=== PATIENT | female | born 1930 | race Caucasian/White ===

== ENCOUNTER → 2016-10-19 | Outpatient (CLI) | payer OTHER, BC ==
[~2016-10-19] MED LIST: ACET325T95 PO; CALCTAB7 PO; CMD5 PO; DORZ2SOL; LEVO125T72 PO; MAGN1CAP2 PO; MULT-190 PO; MULTTAB PO; POTA1TAB PO; WARF7.5T4 PO; XLTOPS OPB
[2016-10-19 13:36] LABS: BASO % 0.5 %; BASO ABS # 0.04 K/uL (0-0.2); COMPLETE YES; EOS % 1.9 %; HEMATOCRIT 37.8 % (37-47); IG% 0.1 %; LYMPH % 26.4 %; LYMPH ABS # 1.93 K/uL (1.2-3.4); MEAN CELL VOLUME 98.7 fL (80-100); MEAN CORPUSCULAR HEMOGLOBIN 32.1 pg (25-34); MEAN CORPUSCULAR HGB CONC 32.5 g/dl (32-36); MEAN PLATELET VOLUME 9.8 fL (7.4-10.4); MONO % 9.4 %; NEUT % 61.7 %; PLATELET COUNT 305 K/uL (130-400); RED BLOOD COUNT 3.83 M/uL (4.2-5.4); WHITE BLOOD COUNT 7.31 K/uL (4.8-10.8)
--- NOTE | 2016-10-19 13:48 | DIAGNOSTIC IMAGING REPORT ---
ULTRASOUND RIGHT VENOUS DOPP LOWER EXT UNILAT CLINICAL HISTORY: Right lower leg pain COMPARISON STUDY: 07/13/2015 FINDINGS: Real-time and color flow Doppler imaging were performed. Flow was seen within the femoral, popliteal and calf veins with no intraluminal thrombus demonstrated. The saphenous vein is patent. There is a complex cystic lesion within the right popliteal fossa measuring 59 x 39 x 15 mm. 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 IMPRESSION: 1. No evidence of right lower extremity DVT 2. Complex popliteal/Ortega's cyst Electronically signed by: Yuri Santana M.D. 10/19/2016 1:46 PM Dictated Date/Time: 10/19/2016 1:45 PM
[2016-10-19 14:00] LABS: ESTIMATED AVERAGE GLUCOSE 134 mg/dl; HA1C FLAG Normal (Normal)
[2016-10-19 14:07] LABS: ALT/SGPT 19 U/L (12-78); AST/SGOT 13 U/L (15-37); BLOOD UREA NITROGEN 31 mg/dl (7-18); BUN/CREATININE RATIO 28.2 (10-20); CALCIUM 9.1 mg/dl (8.5-10.1); CARBON DIOXIDE 29 mmol/L (21-32); CHLORIDE 110 mmol/L (98-107); GLUCOSE 102 mg/dl (70-99); POTASSIUM 4.4 mmol/L (3.5-5.1); SODIUM 143 mmol/L (136-145)
[2016-10-19 14:17] LABS: ALB/GLOB RATIO 1.1 (0.9-2); ALKALINE PHOSPHATASE 60 U/L (45-117); THYROID STIMULATING HORMONE 0.576 uIu/ml (0.300-4.500)
--- NOTE | 2016-10-25 10:16 | CODING QUERY MEDICAL NECESSITY ---
SUPPORTING DIAGNOSIS NEEDED Dr. Parkinson, A supporting diagnosis is required for the test/procedure performed on this patient in order for us to be reimbursed by the patient's insurance. Please provide a supporting diagnosis for the following test/procedure listed below next to the test name along with your signature. *If there is no additional diagnosis for this patient that would support the following test/procedure please document that below next to the test/procedure. Test(s)/Procedure(s) that require a supporting diagnosis: * ([id number]) VITAMIN D ASSAY DIAGNOSIS: * [id number] GLYCATED HEMOGLOBIN DIAGNOSIS: DATE OF SERVICE: 10/19/16 Provider Signature: Date: Thank you Hu Fall[facility] Information Management Once completed, please kindly fax back to [phone] For questions please call [phone]
== END | disposition home or self-care (01) ==
LOC: C.ULTRBC 09:57
PROVIDERS: ATTEND Family Medicine
DX: M79.661 Pain in right lower leg (principal); M85.80 Other specified disorders of bone density and structure, unspecified site; N39.0 Urinary tract infection, site not specified; E03.9 Hypothyroidism, unspecified; R73.03 Prediabetes

== ENCOUNTER 2017-08-22 06:33 | Inpatient (IN) | payer OTHER, BC ==
[2017-07-31 14:38] VITALS: BMI 21.0
--- NOTE | 2017-07-31 15:16 | PAT Medication Instructions ---
Service Date Jul 31, 2017. Current Home Medication List Acetaminophen Tab (Tylenol), 650 MG PO PRN Calcium Carbonate-Vitamin D W/ (Caltrate 600 Plus), 1 TAB PO QAM Dorzolamide Hcl (Trusopt), 1 DROP OPB TID Latanoprost (Xalatan 0.005% Oph Elisabeth), 1 DROPS OP HS Levothyroxine Sodium (Synthroid), 125 MCG PO QPM Magnesium Oxide (Mg Supplement (Magnesium), 400 MG PO QPM Multivitamins/Minerals (Mvi With Minerals), 1 TAB PO QAM Ocuvite Preservision (Ocuvite Preservision), 1 TAB PO BID Potassium Gluconate (Potassium Gluconate), 595 MG PO BID Warfarin Sod (Jantoven), 7.5 MG PO 5XWK Warfarin Sod (Coumadin), 5 MG PO 2XWK Medication Instructions For Your Scheduled Surgery -Contact your prescriber for instructions for: Warfarin Sod (Jantoven), 7.5 MG PO 5XWK Warfarin Sod (Coumadin), 5 MG PO 2XWK - Hold the following medications the morning of surgery: Potassium Gluconate (Potassium Gluconate), 595 MG PO BID Calcium Carbonate-Vitamin D W/ (Caltrate 600 Plus), 1 TAB PO QAM Multivitamins/Minerals (Mvi With Minerals), 1 TAB PO QAM Ocuvite Preservision (Ocuvite Preservision), 1 TAB PO BID - Take the following medications the morning of surgery with a sip of water: Dorzolamide Hcl (Trusopt), 1 DROP OPB TID Acetaminophen Tab (Tylenol), 650 MG PO PRN (if needed, can be taken up to four hours before surgery) - Take the following medications as scheduled the night before surgery: Latanoprost (Xalatan 0.005% Oph Elisabeth), 1 DROPS OP HS Dorzolamide Hcl (Trusopt), 1 DROP OPB TID Levothyroxine Sodium (Synthroid), 125 MCG PO QPM Potassium Gluconate (Potassium Gluconate), 595 MG PO BID Ocuvite Preservision (Ocuvite Preservision), 1 TAB PO BID Magnesium Oxide (Mg Supplement (Magnesium), 400 MG PO QPM Acetaminophen Tab (Tylenol), 650 MG PO PRN If you have any questions please call us at [phone] or [phone] or [phone]
--- NOTE | 2017-07-31 16:05 | DIAGNOSTIC IMAGING REPORT ---
CHEST 2 VIEWS ROUTINE CLINICAL HISTORY: Preoperative chest COMPARISON STUDY: 08/13/2015 FINDINGS: The cardiac and mediastinal contours are normal. There is no evidence of focal pulmonary consolidation. There is no evidence of failure. No pleural effusions are visualized.[ IMPRESSION: No active disease in the chest. Electronically signed by: Yuri Santana M.D. 07/31/2017 4:04 PM Dictated Date/Time: 07/31/2017 4:03 PM
[2017-07-31 16:36] LABS: BASO % 0.4 %; BASO ABS # 0.03 K/uL (0-0.2); EOS % 1.6 %; EOS ABS # 0.11 K/uL (0-0.5); HEMATOCRIT 39.8 % (37-47); IG# 0.01 K/uL (0.00-0.02); MEAN CORPUSCULAR HGB CONC 32.7 g/dl (32-36); MONO % 7.1 %; MONO ABS # 0.49 K/uL (0.11-0.59); NEUT % 58.8 %; NEUT ABS # 4.04 K/uL (1.4-6.5); PLATELET COUNT 266 K/uL (130-400); RED CELL DISTRIBUTION WIDTH CV 14.9 % (11.5-14.5); RED CELL DISTRIBUTION WIDTH SD 55.1 fL (36.4-46.3); WHITE BLOOD COUNT 6.88 K/uL (4.8-10.8)
[2017-07-31 16:43] LABS: CALCIUM 9.1 mg/dl (8.5-10.1); CREATININE 1.04 mg/dl (0.60-1.20); POTASSIUM 4.1 mmol/L (3.5-5.1)
[2017-07-31 16:53] LABS: PTT PATIENT 37.1 SECONDS (21.0-31.0)
--- NOTE | 2017-08-17 21:39 | HISTORY & PHYSICAL EXAMINATION ---
DATE OF ADMISSION: 08/22/2017 CHIEF COMPLAINT: Right knee pain. HISTORY OF PRESENT ILLNESS: This is an 86-year-old female who presents for surgical treatment of her right knee. She has a long history of right knee pain and discomfort. This has gotten gradually worse over the past several years. She has become more and more debilitated by her pain. She has resorted to using a cane to get around. Describes a global pain. It is increased with weightbearing. She would like to have her knee replaced. 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 PAST MEDICAL HISTORY: Significant for: 1. Factor V Leiden abnormality. 2. Hypothyroidism. 3. Arthritis. PAST SURGICAL HISTORY: Hysterectomy. ALLERGIES: None. CURRENT MEDICINES: 1. Coumadin 2. Synthroid. 3. Potassium. 4. PreserVision. 5. Calcium. 6. Magnesium. SOCIAL HISTORY: This is an 86-year-old female. She is . She has 7 children. One drink per day. Her is in fairly poor health. FAMILY HISTORY: Significant for heart disease. REVIEW OF SYSTEMS: Negative for diabetes, neurologic problems, back problems or bleeding disorders. She does have Factor V Leiden abnormality and on Coumadin. She had several DVTs/PEs in the past. PHYSICAL EXAMINATION: GENERAL: This is a frail elderly female. She looks to be in reasonably good health. HEENT: Benign. NECK: Supple. No lymphadenopathy. LUNGS: Clear to auscultation. HEART: Regular rate and rhythm. ABDOMEN: Soft, nontender, nondistended. EXTREMITIES: Grossly neurovascularly intact except as follows: Examination of the right hip and knee and leg reveals the patient walks with a fairly slow gait. She does use a cane. She has slight varus alignment to her knee. Tender over the medial joint line. Range of motion 5-125. No instability. X-RAYS: X-rays of the right knee reviewed. It shows medial compartment DJD. She has complete loss of medial joint space on the 40 degree flexion films. ASSESSMENT: An 86-year-old white female with a history of factor V Leiden abnormality with advanced medial compartment degenerative joint disease. She would like to have her knee fixed. PLAN: We talked about treatment. With her age and factor V Leiden abnormality, we talked about the increased risk and she is aware and wants to proceed. She is fairly adamant about having her knee fixed. The risks and benefits of right total knee replacement were explained to the patient including but not limited to DVT, PE, , infection, neurological injury, vascular injury, bleeding problem, pain, limited range of motion, stiffness, failure to relieve symptoms, incomplete relief of symptoms, need for further surgery in the future, fracture, leg length inequality, nerve palsy. The patient understands and desires to proceed. Informed consent was obtained. She is certainly at increased risk for confusion postop and we will try and limit narcotic use. She will stop her Coumadin 5 days preoperatively. Will need a stat PT on the morning of surgery. We will use Coumadin for postoperative DVT prophylaxis. As far as discharge plans, she is hoping to be discharged to [facility] for rehab visit.
[~2017-08-22] VITALS: Ht 167.6 cm; Wt 60.7 kg
[2017-08-22] VITALS (8 sets, daily range): BP systolic 111–163; BP diastolic 53–64; PULSE 56–67; TEMP 36.3–36.8; O2SAT 96–99; Ht 167.6 cm; Wt 60.7 kg
[~2017-08-22 06:33] MED LIST changes: +ACET-1693 PO; -ACET325T95 PO; +ACETAMINOPHEN 500 MG TAB PO SCH; +BUPIVACAINE LIPOSOME 266 MG, BUPIVACAINE/EPINEPHRINE INJ 50 ML, SODIUM CHLORIDE 0.9% PF... INFIL SCH; +CEFAZOLIN 2000MG IV PUSH 15 ML IV SCH; -CMD5 PO; -DORZ2SOL; +FAMOTIDINE 20 MG TAB PO SCH; +GABAPENTIN 300 MG CAP PO SCH; +LACTATED RINGER'S 1000ML 1,000 ML IV SCH; +LACTATED RINGER'S 1000ML 500 ML IV SCH; +LACTATED RINGER'S 1000ML IV SCH; -LEVO125T72 PO; -MAGN1CAP2 PO; +METOCLOPRAMIDE HCL 10 MG TAB PO SCH; -MULT-190 PO; -MULTTAB PO; +SCOPOLAMINE 1.5 MG TDSY TD SCH; +TRANEXAMIC ACID INJ 1,000 MG in SYRINGE 0 ML IV SCH; -WARF7.5T4 PO; -XLTOPS OPB
[2017-08-22] MEDS ORDERED: DEXAMETHASONE SOD INJ 4 MG/ML VIAL ONE (06:34)
[2017-08-22] MEDS ORDERED: BUPIVACAINE 0.5 % 5 MG/1 ML PF 10ML VIAL ONE (06:34)
[2017-08-22] MEDS ORDERED: BUPIVACAINE 0.25% 30 ML VIAL ONE (06:34)
[2017-08-22] MEDS ORDERED: EpINEphrine INJ 1MG/ML AMP 1 MG/ML AMP ONE (06:35)
[2017-08-22] MEDS ORDERED: MIDAZOLAM HCL 1 MG/ML 2ML VIAL ONE (06:38)
[2017-08-22] MEDS ORDERED: FENTANYL CITRATE INJ 50 MCG/1 ML 2 ML VIAL ONE (06:38)
[2017-08-22 07:54] LABS: INR 1.1 (0.9-1.1); PTT PATIENT 30.8 SECONDS (21.0-31.0)
--- NOTE | 2017-08-22 08:38 | History & Physical Bridge Note ---
H&P Re-Evaluation Bridge Note: I have examined the patient, reviewed the History & Physical and in the interval since the performance of the History & Physical I have noted the following changes of clinical significance: No changes noted
[2017-08-22] MEDS ORDERED: SODIUM CHLORIDE 0.9% PF 50 ML VIAL ONE (08:51)
[2017-08-22] MEDS ORDERED: BUPIVACAINE/EPINEPHRINE 0.25% 1:200,000 30 ML VIAL ONE (08:51)
[2017-08-22] MEDS ORDERED: BUPIVACAINE LIPOSOME 1/3% 266 MG/20 ML VIAL INFIL ONE (08:51)
[2017-08-22] MEDS ORDERED: BACITRACIN 50000 UNIT VIAL ONE (08:51)
[2017-08-22] MEDS ORDERED: ATROPINE SULFATE 0.1 MG/ML 5ML SYR IV PRN (09:30)
[2017-08-22] MEDS ORDERED: ONDANSETRON INJ 2 MG/ML 2 ML VIAL IV PRN (09:30)
[2017-08-22] MEDS ORDERED: FENTANYL CITRATE INJ 50 MCG/1 ML 2 ML VIAL IV PRN (09:30)
[2017-08-22] MEDS ORDERED: EpHEDrine SULFATE INJ 50 MG/ML AMP IV PRN (09:30)
[2017-08-22] MEDS ORDERED: LIDOCAINE HCL 2% 2 ML VIAL (20MG/ML) ONE (09:46)
[2017-08-22] MEDS ORDERED: PROPOFOL IV EMULSION 10 MG/ML 20 ML VIAL IV ONE (09:46)
[2017-08-22] MEDS ORDERED: ONDANSETRON INJ 2 MG/ML 2 ML VIAL ONE (09:46)
[2017-08-22] MEDS ORDERED: EpHEDrine SULFATE 50MG/5ML SYR ONE (09:47)
--- NOTE | 2017-08-22 10:46 | [facility] Post Operative Brief Note ---
Immediate Operative Summary Operative Date Aug 22, 2017. Pre-Operative Diagnosis Right Knee Degenerative Joint Disease Post-Operative Diagnosis Right Knee Degenerative Joint Disease Procedure(s) Performed Right Total Knee Arthroplasty Surgeon Dr Jose G Lebron Turkey Roll Maker Surgeon(s) Gary Jimenez PA-C Estimated Blood Loss 50ML Findings Consistent with Post-Op Diagnosis Fluids (cc crystalloids) 1100 cc Specimens As Per Surgeon A. Right Knee Bone and Tissue Drains None Anesthesia Type MAC Spinal Regional Complication(s) none Disposition Accompanied Pt To Recover: no Disposition: Recovery Room / PACU
[2017-08-22] MEDS ORDERED: MAGNESIUM HYDROXIDE SUSP 30 ML UDC PO PRN (11:00)
[2017-08-22] MEDS ORDERED: SILVER SULFADIAZINE 1% CR 50 GM JAR EXT PRN (11:00)
[2017-08-22] MEDS ORDERED: METOCLOPRAMIDE HCL INJ 5 MG/ML 2 ML VIAL IV PRN (11:00)
[2017-08-22] MEDS ORDERED: ZOLPIDEM TARTRATE 5 MG TAB PO PRN (11:00)
[2017-08-22] MEDS ORDERED: BISACODYL 10 MG SUPP PR PRN (11:00)
[2017-08-22] MEDS ORDERED: ALUMINUM/MAGNESIUM/SIMETH (MAALOX MAX) 30 ML UDC PO PRN (11:00)
[2017-08-22] MEDS ORDERED: CEFAZOLIN IV 1,000 MG in DEXTROSE 5% 50ML 50 ML IV SCH (11:00)
--- NOTE | 2017-08-22 11:10 | DIAGNOSTIC IMAGING REPORT ---
L KNEE 1 OR 2 VIEWS ROUTINE CLINICAL HISTORY: AP/LATERAL IN PACU LEFT KNEE pain COMPARISON: None. DISCUSSION: Patient is status post total right knee arthroplasty. Good contact between prosthetic and the Bone. Surgical drains are present. Expected soft tissue postoperative change. IMPRESSION: Anatomic alignment status post total right knee arthroplasty. The above report was generated using voice recognition software. It may contain grammatical, syntax or spelling errors. Electronically signed by: Keyur Sheehan M.D. 08/22/2017 11:09 AM Dictated Date/Time: 08/22/2017 11:09 AM
--- NOTE | 2017-08-22 11:14 | OPERATIVE REPORT ---
DATE OF OPERATION: 08/22/2017 SURGEON: Dr. Jose G Lebron. SURETY BOND AGENT: GOLD Costa PREOPERATIVE DIAGNOSIS: Right knee degenerative joint disease. POSTOPERATIVE DIAGNOSIS: Same. PROCEDURE PERFORMED: Right cemented posterior stabilized total knee arthroplasty. COMPLICATIONS: None. ESTIMATED BLOOD LOSS: 50 mL. FLUID REPLACEMENT: 1100 mL crystalloid fluid replacement. TOURNIQUET TIME: 51 minutes at 300 mmHg. ANESTHESIA: Spinal with adductor canal block. DRAINS: None. SPECIMENS: Right knee sent for pathology. OPERATIVE INDICATIONS: The patient is an 86-year-old fairly healthy spry female with a Factor V Leiden abnormality, who has had a long history of right knee pain and discomfort that became less managed with conservative care over time. She has had more and more difficulty getting around to the point where she has had to use a cane. X-rays show moderately advanced knee DJD. She had failed conservative treatment and elected to proceed with operative treatment. Of note, the patient does have a Factor V Leiden abnormality and we explained the significantly increased risk of thrombosis and pulmonary embolism with her underlying condition. Despite this, she was adamant about proceeding with knee arthroplasty. OPERATIVE FINDINGS: Operative findings revealed advanced right knee DJD. She had focal grade 4 changes in the medial femoral condyle and medial tibial plateau. She also had pretty extensive focal grade 4 changes in the lateral compartment as well as in the intercondylar eminence area due to the subluxation. A moderate sized joint effusion. OPERATIVE IMPLANTS: Operative implants consisted of: 1. Biomet Vanguard size 62.5 right posterior stabilized femoral component. 2. Biomet size 67 tibial tray. 3. A 10-mm posterior stabilized polyethylene insert. 4. A 31 x 8 all poly patella. OPERATIVE PROCEDURE: The patient was taken to the operating room, identified and placed on the operating table in the supine position. All contact areas were appropriately padded. IV antibiotics provided by anesthesia team. A spinal anesthetic and adductor canal block had been provided in the holding area. Park catheter was placed in sterile fashion. Right thigh tourniquet was then placed and the right lower extremity was then prepped and draped in the usual sterile fashion. The right leg was elevated and exsanguinated with Esmarch and tourniquet was placed at 300 mmHg. An anterior approach to the right knee was then performed through a longitudinal incision centered over the patella. Sharp dissection was carried through the subcutaneous tissues down to the level of the extensor mechanism. A medial parapatellar arthrotomy incision was made. Some subperiosteal dissection was carried out medially. The fat pad was resected from beneath the patellar tendon. The lateral patellofemoral ligament was released. The patella was everted and knee was flexed. The osteophytes were taken off the distal femur. The ACL and PCL were then released from the distal femur and the tibia subluxated anteriorly. The external tibial alignment jig was then placed in the anterior face of the tibia and adjusted 14 mm medially. Proximal tibial cut was made to remove about 3-4 mm of bone from the most deficient aspect of the medial tibial plateau. She did not have excessive medial tibial wear. The tibia was sized to a size 67. Attention was then drawn to the femur. The distal femur was entered with a sharp drill. The intramedullary canal was suctioned. A right 5-degree valgus cutting guide was placed. Distal femoral cutting block was pinned in place. Distal femoral cut was made to take an additional 3 mm of bone off the distal femur. The femur was then sized to a size 62.5. We did downsize this slightly. The AP cutting block was pinned parallel to the epicondylar axis, which was 3 degrees of external rotation. The anterior cut, anterior chamfer, posterior cut, and posterior chamfer cuts were made. Box cutting guide was placed and adjusted slightly lateral and the box cut was made. The knee was flexed. The remnants of the medial and lateral meniscus were excised. The osteophytes were taken off the posterior aspect of the femur. Trial femoral component was placed. Tibial tray was pinned in maximum external rotation and the drill and stem punch were used to create defect in proximal tibia for the tibial tray. The knee was then trialed and the 10-mm insert fit most appropriately. Attention was then drawn to the patella. The patella was cleaned of all soft tissues. Patella thickness measured 22 mm in thickness and it was cut down to 13. It was sized to a size 31 patella. Lug holes were drilled for the 31 patella. The lateral osteophyte was removed. Patella button was placed. Knee was taken through range of motion and the patella tracked nicely with no thumbs test. Attention was then drawn toward placement of permanent components. All trial components were removed. A bone plug was placed in the distal femur to limit blood loss. A double batch of Palacos G cement was mixed. A right size 62.5 posterior stabilized femoral component, size 67 tibial tray, a 10-mm posterior stabilized polyethylene insert, and a 31 x 8 all poly patella were then cemented in place. Knee was brought out into full extension until cement hardened. A final cement check was then performed. Pericapsular tissues were injected with a total of 100 mL of a combination of 20 mL of Exparel, 30 mL of normal saline, and 50 mL of 0.25% Marcaine with epinephrine. The patient did receive 1 gram of tranexamic acid. We gave this knowing her Factor V Leiden abnormality, but there is no known increased thrombosis risk with this medicine. The tourniquet was then let down for a final tourniquet time of 51 minutes. Hemostasis was assured with the use of electrocautery. The extensor mechanism was then closed with a combination of #1 PDS suture and #1 Vicryl suture in a [id number] fashion. Extensor mechanism was checked and found to be intact. The subcutaneous tissues were then closed with 2-0 Dexon suture in a buried interrupted fashion. Skin was closed skin slime. Leg was then cleaned and dried and a sterile dressing of Xeroform, 4 x 4, sterile cast padding and Jr bandage were applied. The patient then transferred to the recovery room in stable condition. The patient tolerated the procedure well with no complications. All needle and sponge counts were correct at the end of the operation. I attest to the content of the Intraoperative Record and any orders documented therein. Any exception s are noted below.
--- NOTE | 2017-08-22 11:26 | Anesthesiology Progress Note ---
Anesthesia Post Op Note Date & Time Aug 22, 2017 at 11:25 Vital Signs Pain Intensity: 0 Vital Signs Past 12 Hours Date Time Temp Pulse Resp B/P (MAP) Pulse Ox O2 Delivery O2 Flow Rate FiO2 08/22/17 11:20 37 65 16 119/51 99 Nasal Cannula 2 08/22/17 11:10 67 16 121/53 99 Nasal Cannula 2 08/22/17 11:00 66 16 114/52 99 Oxymask 10 08/22/17 10:52 36.4 69 18 119/47 99 Oxymask 10 08/22/17 07:37 36.7 64 20 163/64 98 Room Air Notes Mental Status: alert / awake / arousable, participated in evaluation Pt Amnestic to Procedure: Yes Nausea / Vomiting: adequately controlled Pain: adequately controlled Airway Patency, RR, SpO2: stable & adequate BP & HR: stable & adequate Hydration State: stable & adequate Neuraxial Anesthesia: was administered, sensory block is resolving Anesthetic Complications: no major complications apparent
[2017-08-22] MEDS: ONDANSETRON INJ 2 MG/ML 2 ML VIAL IV PRN (12:32)
[2017-08-22] MEDS ORDERED: HYDROmorphone INJ 0.5 MG/0.5 ML SYR ONE (12:39)
[2017-08-22] MEDS: DORZOLAMIDE HCL 2% OPH SOLN 10 ML BTL OPB SCH ×2 (13:57→21:13)
[2017-08-22] MEDS: ACETAMINOPHEN 500 MG TAB PO SCH ×2 (13:57→21:20)
[2017-08-22] MEDS: D5W AND 1/2NSS + 20MEQ KCL 1,000 ML IV SCH ×2 (15:05→23:36)
[2017-08-22] MEDS ORDERED: WARFARIN SOD 10 MG TAB PO SCH (16:00)
[2017-08-22] MEDS: CHECK SCOPOLAMINE PATCH PLACEMENT SCH ×2 (16:32→23:36)
[2017-08-22] MEDS: TRAMADOL HCL 50 MG TAB PO PRN (16:36)
[2017-08-22] MEDS: KETOROLAC TROMETHAMINE 15 MG/ML VIAL IV. SCH ×2 (18:14→23:36)
[2017-08-22] MEDS: CEFAZOLIN IV 1,000 MG in SYRINGE 0 ML IV SCH (18:14)
[2017-08-22] MEDS: FERROUS GLUCONATE 324 MG TAB PO SCH (18:24)
[2017-08-22] MEDS ORDERED: NON-FORMULARY MEDICATION (Potassium Gluconate 595 MG) PO SCH (21:00)
[2017-08-22] MEDS: LATANOPROST 0.005% OP SOLN 2.5 ML BTL OP SCH (21:15)
[2017-08-22] MEDS: DOCUSATE SODIUM 100 MG CAP PO SCH (21:18)
[2017-08-22] MEDS: MAGNESIUM OXIDE 400 MG TAB PO SCH (21:18)
[2017-08-22] MEDS: SENNA 8.6 MG TAB PO SCH (21:18)
[2017-08-22] MEDS: CEROVITE ADV FORMULA TAB PO SCH (21:19)
[2017-08-23] VITALS (8 sets, daily range): BP systolic 90–121; BP diastolic 48–66; PULSE 53–81; TEMP 36.5–38.4; O2SAT 92–98
[2017-08-23] MEDS: CEFAZOLIN IV 1,000 MG in SYRINGE 0 ML IV SCH (02:02)
[2017-08-23] MEDS: ACETAMINOPHEN 500 MG TAB PO SCH ×3 (05:42→22:10)
[2017-08-23] MEDS: LEVOTHYROXINE 125 MCG TAB PO SCH (05:42)
[2017-08-23] MEDS: KETOROLAC TROMETHAMINE 15 MG/ML VIAL IV. SCH (05:43)
[2017-08-23 07:31] LABS: HEMATOCRIT 32.9 % (37-47); HEMOGLOBIN 10.6 g/dL (12.0-16.0); MEAN CELL VOLUME 100.9 fL (80-100); MEAN CORPUSCULAR HEMOGLOBIN 32.5 pg (25-34); MEAN CORPUSCULAR HGB CONC 32.2 g/dl (32-36); MEAN PLATELET VOLUME 9.9 fL (7.4-10.4); PLATELET COUNT 197 K/uL (130-400); RED CELL DISTRIBUTION WIDTH CV 14.3 % (11.5-14.5); RED CELL DISTRIBUTION WIDTH SD 52.6 fL (36.4-46.3); WHITE BLOOD COUNT 8.94 K/uL (4.8-10.8)
[2017-08-23 07:36] LABS: INR 1.2 (0.9-1.1)
--- NOTE | 2017-08-23 07:48 | PROGRESS NOTE ---
DATE: 08/23/2017 SUBJECTIVE: An 86-year-old female postop day 1 from right knee replacement. She is doing well. Pain seems to be very well controlled this morning. No chest pain or shortness of breath. Not feeling dizzy or lightheaded. OBJECTIVE: VITAL SIGNS: Temperature 36.8. Vital signs stable. GENERAL: Reveals a pleasant elderly female. She is lying in bed and looks pretty comfortable. She is doing a heel prop. EXTREMITIES: Examination of the right leg reveals the leg to be well aligned. Dressing is clean, dry and intact. She can dorsiflex and plantarflex her foot appropriately. She is neurologically intact. PLAN: 1. DVT prophylaxis including thigh-high TEDs, SCDs, and Coumadin as she has Factor V abnormality. We will start prophylactic Lovenox 24 hours post-op. 2. PT/OT. Weight bear as tolerated. Right total knee protocol. 3. Pain control, doing well with current pain regimen. 4. Disposition: She is planning to be discharged to [facility] for a rehab stay once medically stable and recovered. LILLIAN
--- NOTE | 2017-08-23 07:59 | PROGRESS NOTE ---
DATE: 08/23/2017 ADDENDUM Ximena is an 86-year-old female who has Factor V Leiden abnormality, postop day 1 from a right knee replacement. Her DVT prophylaxis plan is thigh TEDs, SCDs, and Coumadin. We bolster yesterday and she will start prophylactic Lovenox 24 hours postoperatively until her Coumadin is more therapeutic. We will give her 7.5 mg of Coumadin today.
[2017-08-23 08:01] LABS: CALCIUM 8.1 mg/dl (8.5-10.1); CREATININE 1.3 mg/dl (0.60-1.20); POTASSIUM 4.7 mmol/L (3.5-5.1)
[2017-08-23] MEDS: CHECK SCOPOLAMINE PATCH PLACEMENT SCH ×3 (08:27→23:39)
[2017-08-23] MEDS ORDERED: ULT50X PO ×2 (08:34)
[2017-08-23] MEDS ORDERED: FRRG PO ×2 (08:34)
[2017-08-23] MEDS ORDERED: ACET-24 PO ×2 (08:34)
--- NOTE | 2017-08-23 08:36 | Discharge Instructions ---
Discharge Instructions Date of Service Aug 23, 2017. Admission Reason for Admission: Right Knee Degenerative Joint Disease Discharge Discharge Diagnosis / Problem: Right Knee Replacement Discharge Goals Goal(s): Decrease discomfort, Improve function, Increase independence, Improve disease control, Therapeutic intervention Activity Recommendations Activity Level: Assistance Required Therapies: Physical Therapy, Occupational Therapy Weightbearing Status: Right weightbearing . Additional Information Patient informed of condition: Yes Advance Directives: Yes DNR: No Level of Care: Acute Rehab Communicable Disease: No Prognosis: Improving Instructions / Follow-Up Instructions / Follow-Up ACTIVITY RECOMMENDATIONS: Physical Therapy: * You will go to physical therapy three times each week for four to six weeks after your surgery in order to regain your knee range of motion and to retrain your knee to work properly. * It is just as important to make sure you are getting your knee perfectly straight as it is to regain your knee bend. * Taking a pain pill an hour before therapy can help you have a more productive and comfortable therapy session. Home Exercise: * You were shown a series of exercises (heel props, heel slides, etc.) in the hospital. Do these exercises three to four times each day including the exercises you were shown in physical therapy. Walking: * Get up and walk several times each day. For the first four weeks, try not to stand or walk for more than one hour at a time. If you do stand or walk for more than one hour, you will not hurt anything, but your knee and leg will likely swell. * As you feel comfortable, you may change from the walker or crutches to a cane and then to independent walking. MEDICATIONS: New Medicine: * You will likely be taking one or more of these medications: 1. Tramadol - A quick and shorter-acting pain medication. Take one to two tablets every four to six hours to lessen your pain. 2. Iron Sulfate - Take two times each day for the month after surgery to help you replace the blood lost during surgery. 3. Coumadin - Thins your blood to lessen the chance of forming a blood clot. The dose of this is different for each person and is based on your blood tests. * The most common side effects of pain medicine and iron are nausea and constipation. If nausea or constipation is too much of a problem or if you have any questions about your new medicines or doses, call [facility] at . We will try to help you manage these issues. VERY IMPORTANT TO READ AND REVIEW" Pain: * The immediate post-operative period after knee replacement surgery is often quite painful. * You are given a prescription for pain medicine. You should take it, as directed, when you need it, especially before physical therapy and before going to bed. Pain that interferes with sleep is very common and can last several months. * You will likely need pain medicine for the first four to six weeks. It will not stop all of the pain. The pain will lessen and as you feel better, you may change to milder pain medicine such as Tylenol. * The most common side effects of pain medicine are nausea and constipation, so don't take more than you need. SPECIAL CARE INSTRUCTIONS: TEDs/Elastic Stockings: * The white elastic stockings help limit swelling and prevent blood clots from forming in your legs. The more you wear them, the more they work. * Wear them for six weeks after knee replacement surgery and four weeks after partial knee replacement. Prevention of Infection: * Take antibiotics one hour before any dental cleaning, dental work, urological procedure, gastrointestinal procedure or any invasive surgery in order to prevent your new joint from getting infected. * You may get the antibiotics from the doctor performing the procedure or you may call our office at before and we will call in a prescription to the pharmacy of your choice. Things to Watch For: * Drainage from the incision site that occurs more than one week after your surgery. * Severely increased knee/leg pain or swelling. * Increased redness at the incision site. * Fever above 102 degrees Fahrenheit. * Unusual chest pain or shortness of breath. * Unusual pain or burning with urination. Call [facility] at with any of the above problems or if you have any questions about your medicines or recovery. FOLLOW UP VISIT: Make an appointment to see your doctor for approximately two weeks after surgery for a progress check and staple removal by calling the office at . Current Hospital Diet Patient's current hospital diet: Regular Diet Discharge Diet Recommended Diet: Regular Diet Procedures Procedures Performed: Right Total Knee Arthroplasty Pending Studies Studies pending at discharge: no Medical Emergencies . Who to Call and When: Medical Emergencies: If at any time you feel your situation is an emergency, please call 911 immediately. . Non-Emergent Contact Non-Emergency issues call your: Surgeon . . "Provider Documentation" section prepared by Jose G Lebron. . Core Measure Problem Core Measures: None
[2017-08-23] MEDS: PANTOprazole SOD 40 MG TAB PO SCH (08:49)
[2017-08-23] MEDS: CEROVITE ADV FORMULA TAB PO SCH ×2 (08:49→20:40)
[2017-08-23] MEDS: CALCIUM 600MG + VIT D 400 IU TAB PO SCH (08:49)
[2017-08-23] MEDS: DOCUSATE SODIUM 100 MG CAP PO SCH ×2 (08:50→20:40)
[2017-08-23] MEDS: FERROUS GLUCONATE 324 MG TAB PO SCH ×3 (08:50→17:56)
[2017-08-23] MEDS: MULTIVITAMIN TAB PO SCH (08:50)
[2017-08-23] MEDS: DORZOLAMIDE HCL 2% OPH SOLN 10 ML BTL OPB SCH ×3 (08:51→20:40)
[2017-08-23] MEDS ORDERED: CEROVITE ADV FORMULA TAB PO SCH (09:00)
--- NOTE | 2017-08-23 09:20 | Clinical Documentation Query ---
DEANNA Umanzor : CLINICAL DOCUMENTATION QUERY Documentation includes "Factor V Leiden abnormality". As appropriate, consider documentation as suggested below as "abnormality" cannot be assumed to be a deficiency or excess. Thank you. In your clinical opinion is this patient being managed for: ( x ) Factor 5 Leiden excess/thrombophilia ( ) Factor 5 Leiden deficiency/Owren disease ( ) Not Agree ( ) Other explanation of clinical findings (Please Explain) ( ) Unable to determine (Please Define) ( ) Need to Discuss The medical record reflects the following clinical findings, treatment, and risk factors. Clinical Indicators: As above Treatment: Coumadin Risk Factors: Genetic mutation/variant Please clarify and document your clinical opinion in the progress notes and discharge summary. Terms such as "probable", "suspected", "likely", "questionable", "possible", or "still to be ruled out" are acceptable. IF IN AGREEMENT, YOU MUST DOCUMENT ABOVE DIAGNOSTIC STATEMENT IN DAILY PROGRESS NOTES AND DISCHARGE SUMMARY. This document is not part of the patient's record. Thank You, Crescencio Wallace, [place] NENA [phone]
[2017-08-23] MEDS: D5W AND 1/2NSS + 20MEQ KCL 1,000 ML IV SCH (09:28)
--- NOTE | 2017-08-23 10:04 | Anesthesiology Progress Note ---
Anesthesia Post Op Note Date & Time Aug 23, 2017 at 10:03 Vital Signs Pain Intensity: 0.0 Vital Signs Past 12 Hours Date Time Temp Pulse Resp B/P (MAP) Pulse Ox O2 Delivery O2 Flow Rate FiO2 08/23/17 07:18 55 12 91/51 (64) 96 Room Air 08/23/17 07:15 Room Air 08/23/17 06:49 36.8 54 16 91/48 (62) 96 Room Air 08/23/17 05:50 96 Room Air 08/23/17 04:07 36.5 55 16 100/55 (70) 98 Nasal Cannula 2.0 08/22/17 23:40 Nasal Cannula 2.0 08/22/17 22:55 36.8 63 16 112/55 (74) 96 Nasal Cannula 2.0 Notes Mental Status: alert / awake / arousable, participated in evaluation Pt Amnestic to Procedure: Yes Nausea / Vomiting: adequately controlled Pain: adequately controlled Airway Patency, RR, SpO2: stable & adequate BP & HR: stable & adequate Hydration State: stable & adequate Neuraxial Anesthesia: was administered, sensory block resolved Anesthetic Complications: no major complications apparent
[2017-08-23] MEDS ORDERED: ENOXAPARIN 30 MG/0.3 ML SYR SQ SCH (12:00)
[2017-08-23] MEDS ORDERED: WARFARIN SOD 7.5 MG TAB PO ONE (16:00)
[2017-08-23] MEDS: TRAMADOL HCL 50 MG TAB PO PRN (20:38)
[2017-08-23] MEDS: LATANOPROST 0.005% OP SOLN 2.5 ML BTL OP SCH (20:39)
[2017-08-23] MEDS: MAGNESIUM OXIDE 400 MG TAB PO SCH (20:40)
[2017-08-23] MEDS: SENNA 8.6 MG TAB PO SCH (20:41)
[2017-08-23] MEDS: ENOXAPARIN 60 MG/0.6 ML SQ SCH (22:12)
[2017-08-24] MEDS: TRAMADOL HCL 50 MG TAB PO PRN ×3 (01:24→12:27)
[2017-08-24] MEDS: LEVOTHYROXINE 125 MCG TAB PO SCH (05:37)
[2017-08-24] MEDS: ACETAMINOPHEN 500 MG TAB PO SCH ×3 (05:37→21:26)
[2017-08-24 06:08] LABS: INR 1.5 (0.9-1.1)
[2017-08-24 06:25] LABS: CREATININE 1.46 mg/dl (0.60-1.20); POTASSIUM 4.6 mmol/L (3.5-5.1)
[2017-08-24 06:57] VITALS: BP 105/65; PULSE 65; TEMP 37.4; O2SAT 95
--- NOTE | 2017-08-24 07:36 | PROGRESS NOTE ---
DATE: 08/24/2017 SUBJECTIVE: An 86-year-old white female postop day #2 from a right knee replacement. Having a little bit more knee pain this morning. No other real complaints. No chest pain or shortness of breath. OBJECTIVE: VITAL SIGNS: Temperature is 37.4. Vital signs stable. GENERAL: Reveals a pleasant elderly female. A bit difficult hard of hearing. She is lying in bed, looks pretty comfortable. EXTREMITIES: Examination of the right leg reveals it to be well aligned. No significant drainage. Calf is soft and supple. She is neurologically intact. LABORATORY DATA: INR is 1.5. ASSESSMENT: An 86-year-old white female postop day #2 from a right knee replacement, doing pretty well loss. A bit more pain this morning which is not too unusual. Her INR not quite therapeutic. PLAN: 1. PT/OT. Weightbear as tolerated. Right total knee protocol. 2. Pain control, doing pretty well with current pain regimen. Will have to adjust medicines as needed to manage her pain, but avoid confusion. 3. DVT prophylaxis including thigh-high TEDs, SCDs, and she is on Coumadin and Lovenox. We will continue to dose of Coumadin and stop the Lovenox when she is in the therapeutic range. 4. Disposition: She is hoping to be discharged to [facility] for a brief rehab stay once medically stable.
[2017-08-24] MEDS: CHECK SCOPOLAMINE PATCH PLACEMENT SCH ×3 (08:09→22:49)
[2017-08-24] MEDS: HYDROmorphone INJ 0.5 MG/0.5 ML SYR IV PRN (08:12)
[2017-08-24] MEDS: FERROUS GLUCONATE 324 MG TAB PO SCH ×3 (08:30→18:50)
[2017-08-24] MEDS: ONDANSETRON INJ 2 MG/ML 2 ML VIAL IV PRN (08:39)
[2017-08-24] MEDS: PANTOprazole SOD 40 MG TAB PO SCH (09:00)
[2017-08-24] MEDS: MULTIVITAMIN TAB PO SCH (09:00)
[2017-08-24] MEDS: CEROVITE ADV FORMULA TAB PO SCH ×2 (09:00→21:24)
[2017-08-24] MEDS: CALCIUM 600MG + VIT D 400 IU TAB PO SCH (09:00)
[2017-08-24] MEDS: DOCUSATE SODIUM 100 MG CAP PO SCH ×2 (11:06→21:00)
[2017-08-24] MEDS: DORZOLAMIDE HCL 2% OPH SOLN 10 ML BTL OPB SCH ×3 (11:08→21:26)
[2017-08-24] MEDS: ENOXAPARIN 60 MG/0.6 ML SQ SCH (12:21)
[2017-08-24] MEDS ORDERED: WARFARIN SOD 7.5 MG TAB PO SCH (16:00)
[2017-08-24 17:20] VITALS: BP 95/56; PULSE 63; TEMP 36.9; O2SAT 100
[2017-08-24] MEDS: SENNA 8.6 MG TAB PO SCH (21:00)
[2017-08-24] MEDS: MAGNESIUM OXIDE 400 MG TAB PO SCH (21:24)
[2017-08-24] MEDS: LATANOPROST 0.005% OP SOLN 2.5 ML BTL OP SCH (21:27)
[2017-08-24] MEDS ORDERED: ENOXAPARIN 30 MG/0.3 ML SYR SQ SCH (23:00)
[2017-08-24 23:39] VITALS: BP 109/60; PULSE 60; TEMP 37; O2SAT 96
[2017-08-25 05:54] LABS: HEMATOCRIT 29.6 % (37-47); HEMOGLOBIN 9.5 g/dL (12.0-16.0); MEAN CELL VOLUME 101.4 fL (80-100); MEAN CORPUSCULAR HEMOGLOBIN 32.5 pg (25-34); MEAN CORPUSCULAR HGB CONC 32.1 g/dl (32-36); MEAN PLATELET VOLUME 9.7 fL (7.4-10.4); PLATELET COUNT 186 K/uL (130-400); RED CELL DISTRIBUTION WIDTH CV 14.6 % (11.5-14.5); RED CELL DISTRIBUTION WIDTH SD 54.1 fL (36.4-46.3); WHITE BLOOD COUNT 7.36 K/uL (4.8-10.8)
[2017-08-25 06:01] LABS: INR 1.5 (0.9-1.1)
[2017-08-25] MEDS: ACETAMINOPHEN 500 MG TAB PO SCH ×2 (06:08→13:47)
[2017-08-25] MEDS: LEVOTHYROXINE 125 MCG TAB PO SCH (06:09)
[2017-08-25] MEDS: TRAMADOL HCL 50 MG TAB PO PRN ×3 (06:09→14:45)
[2017-08-25 06:11] LABS: CALCIUM 8.1 mg/dl (8.5-10.1); CREATININE 1.05 mg/dl (0.60-1.20); POTASSIUM 4.4 mmol/L (3.5-5.1)
[2017-08-25] MEDS: HYDROmorphone INJ 0.5 MG/0.5 ML SYR IV PRN (06:46)
--- NOTE | 2017-08-25 07:36 | PROGRESS NOTE ---
DATE: 08/25/2017 SUBJECTIVE: This is an 86-year-old white female postop day 3 from a right knee replacement. She is doing pretty well. Pain varies to be in pretty severe to manageable. No chest pain or shortness of breath. Not feeling dizzy or lightheaded. OBJECTIVE: VITAL SIGNS: Temperature is 37.0. Vital signs stable. GENERAL: Reveals a pleasant elderly female. She is lying in bed. Looks reasonably comfortable. EXTREMITIES: Examination of the right leg reveals the leg to be well aligned. Dressing is clean, dry and intact. There is not much swelling. She is diffusely tender to palpation anywhere around her leg, thigh and knee area. She can dorsiflex and plantarflex her foot appropriately. Calf is soft and supple. LABORATORY DATA: Hemoglobin 9.5, hematocrit 29.6. INR 1.5. Electrolytes are improved with a creatinine improved at 1.05, which is back down to baseline. ASSESSMENT: An 86-year-old white female postop day 3 from right knee replacement, doing reasonably well. Pain has been a little difficult to read with the patient as sometimes she is relatively pain free and other times she states it is severe. In any case, we need to be careful with strong narcotic pain medicine to avoid confusion issues. Her INR is not quite therapeutic. PLAN: 1. DVT prophylaxis including thigh-high TEDs, SCDs, and Coumadin. Goal will be to keep her INR between 1.8 and 2.5. 2. PT/OT. Weight-bearing as tolerated. Right total knee protocol. 3. Pain control, doing okay with current pain regimen. 4. Disposition: Hoping to be discharged to [facility] once approved. LILLIAN
[2017-08-25 08:06] VITALS: BP 104/58; PULSE 59; TEMP 36.9; O2SAT 93
[2017-08-25] MEDS: DOCUSATE SODIUM 100 MG CAP PO SCH (08:26)
[2017-08-25] MEDS: MULTIVITAMIN TAB PO SCH (08:33)
[2017-08-25] MEDS: FERROUS GLUCONATE 324 MG TAB PO SCH ×2 (08:33→12:37)
[2017-08-25] MEDS: CALCIUM 600MG + VIT D 400 IU TAB PO SCH (08:33)
[2017-08-25] MEDS: CEROVITE ADV FORMULA TAB PO SCH (08:34)
[2017-08-25] MEDS: DORZOLAMIDE HCL 2% OPH SOLN 10 ML BTL OPB SCH ×2 (08:34→13:47)
[2017-08-25] MEDS ORDERED: ENOXAPARIN 30 MG/0.3 ML SYR SQ SCH ×2 (09:00→11:00)
[2017-08-25] MEDS: PANTOprazole SOD 40 MG TAB PO SCH (09:58)
[2017-08-25 15:00] VITALS: BP 105/66; PULSE 60; TEMP 36.4; O2SAT 96
[2017-08-25] MEDS ORDERED: WARFARIN SOD 7.5 MG TAB PO ONE (16:00)
[2017-08-28] MEDS ORDERED: CMD5 PO ×2 (07:53)
[2017-08-28] MEDS ORDERED: MAGN1CAP2 PO ×2 (08:26)
[2017-08-28] MEDS ORDERED: MULT-190 PO ×2 (12:09)
[2017-08-28] MEDS ORDERED: MULTTAB PO ×2 (14:26)
[2017-08-28] MEDS ORDERED: LEVO125T72 PO ×2 (14:26)
[2017-08-28] MEDS ORDERED: LATA0.5S OPB ×2 (14:36)
[2017-08-28] MEDS ORDERED: WARF7.5T4 PO ×2 (16:09)
[2017-08-28] MEDS ORDERED: DORZ2SOL OPB ×2 (16:15)
--- NOTE | 2017-08-30 16:26 | DISCHARGE SUMMARY ---
ADMITTING PHYSICIAN AND SURGEON: Dr. Lebron. ADMITTING DIAGNOSIS: Right knee degenerative joint disease. SURGERY PERFORMED: Right total knee arthroplasty. SECONDARY DIAGNOSES: Factor V Leiden abnormality, hypothyroidism, arthritis. CONSULTS: None obtained. HISTORY AND PHYSICAL EXAMINATION: Well documented in the patient's chart. HOSPITAL COURSE: The patient was admitted on 08/22/2017 underwent total knee arthroplasty. He tolerated the procedure well. There were no complications. She was transferred to the PACU postoperatively and later to the orthopedic floor for further care. She was given Ancef for antibiotic prophylaxis, ANTIONETTE stockings, SCDs and Coumadin and Lovenox for DVT prophylaxis. Her INR was monitored daily and Coumadin dosed accordingly. Hemoglobin, hematocrit and vital signs were monitored during her hospital stay and remained stable. She developed some postoperative anemia, did not require any blood transfusions. There were no complications. By postoperative day 3, she was tolerating a regular diet, pain was controlled with oral pain medicine. She was participating in physical therapy. On postop day 3, she was transferred to a rehab facility. She was instructed to continue her home medications including Coumadin with the exception of her home dose of Tylenol, which was changed. Continue physical therapy, weightbearing as tolerated, ANTIONETTE stockings. Follow up in 10-12 days or sooner if there are any problems or concerns.
== END 2017-08-25 16:02 | DRG 470 ==
LOC: C.ACU 06:33 → C.3E 07:50
PROVIDERS: ADMIT Orthopaedic Surgery Sports Medicine; ATTEND Orthopaedic Surgery Sports Medicine
PROC: 0SRC0J9 Replacement of Right Knee Joint with Synthetic Substitute, Cemented, Open Approach (ICD-10-PCS; principal; 2017-08-22 08:55)
DX: M17.11 Unilateral primary osteoarthritis, right knee (principal); D68.51 Activated protein C resistance; E03.9 Hypothyroidism, unspecified; Z86.718 Personal history of other venous thrombosis and embolism; Z86.711 Personal history of pulmonary embolism; Z79.01 Long term (current) use of anticoagulants

== ENCOUNTER 2017-08-28 17:32 | Emergency (ER) | payer OTHER, BC ==
[~2017-08-28] VITALS: Ht 167.6 cm; Wt 66.7 kg
[2017-08-28 17:32] VITALS: TEMP 37.2; Ht 167.6 cm; Wt 66.7 kg
[~2017-08-28 17:32] MED LIST changes: +ACET-24 PO; -ACETAMINOPHEN 500 MG TAB PO SCH; -BUPIVACAINE LIPOSOME 266 MG, BUPIVACAINE/EPINEPHRINE INJ 50 ML, SODIUM CHLORIDE 0.9% PF... INFIL SCH; -CEFAZOLIN 2000MG IV PUSH 15 ML IV SCH; +CMD5 PO; +DORZ2SOL OPB; -FAMOTIDINE 20 MG TAB PO SCH; +FRRG PO; -GABAPENTIN 300 MG CAP PO SCH; -LACTATED RINGER'S 1000ML 1,000 ML IV SCH; -LACTATED RINGER'S 1000ML 500 ML IV SCH; -LACTATED RINGER'S 1000ML IV SCH; +LATA0.5S OPB; +LEVO125T72 PO; +MAGN1CAP2 PO; -METOCLOPRAMIDE HCL 10 MG TAB PO SCH; +MULT-190 PO; +MULTTAB PO; -SCOPOLAMINE 1.5 MG TDSY TD SCH; -TRANEXAMIC ACID INJ 1,000 MG in SYRINGE 0 ML IV SCH; +ULT50X PO; +WARF7.5T4 PO
[2017-08-28] MEDS ORDERED: OPTIRAY 320 IV PRN (18:00)
[2017-08-28 18:14] LABS: HEMATOCRIT 32.4 % (37-47); HEMOGLOBIN 10.6 g/dL (12.0-16.0); MEAN CELL VOLUME 100.9 fL (80-100); MEAN CORPUSCULAR HGB CONC 32.7 g/dl (32-36); MEAN PLATELET VOLUME 9.4 fL (7.4-10.4); PLATELET COUNT 336 K/uL (130-400); RED CELL DISTRIBUTION WIDTH CV 14.4 % (11.5-14.5); RED CELL DISTRIBUTION WIDTH SD 53.5 fL (36.4-46.3); WHITE BLOOD COUNT 7.65 K/uL (4.8-10.8)
[2017-08-28 18:34] LABS: ALBUMIN 2.8 gm/dl (3.4-5.0); CREATININE 1.15 mg/dl (0.60-1.20); POTASSIUM 4.1 mmol/L (3.5-5.1)
[2017-08-28 18:36] LABS: TOTAL PROTEIN 6.5 gm/dl (6.4-8.2)
[2017-08-28 18:44] LABS: BASO % 0.1 %; BASO ABS # 0.01 K/uL (0-0.2); EOS % 3.5 %; EOS ABS # 0.27 K/uL (0-0.5); IG# 0.05 K/uL (0.00-0.02); LYMPH % 29.5 %; LYMPH ABS # 2.26 K/uL (1.2-3.4); MONO % 10.1 %; MONO ABS # 0.77 K/uL (0.11-0.59); NEUT % 56.1 %; NEUT ABS # 4.29 K/uL (1.4-6.5)
[2017-08-28] MEDS ORDERED: SENN8.6T36 PO (18:53)
[2017-08-28] MEDS ORDERED: FERR325T18 PO (18:53)
[2017-08-28] MEDS ORDERED: CALC-464 PO (18:53)
[2017-08-28] MEDS ORDERED: ACET-1256 PO (18:53)
[2017-08-28] MEDS ORDERED: DOCU100C31 PO (18:53)
[2017-08-28] MEDS ORDERED: TRAM-10 PO (18:53)
[2017-08-28] MEDS ORDERED: BISA10SU5 PR (18:56)
[2017-08-28] MEDS ORDERED: ONDA4TAB10 SL (18:56)
--- NOTE | 2017-08-28 19:12 | DIAGNOSTIC IMAGING REPORT ---
ABD/PELVIS IV CONTRAST ONLY CT DOSE: 301.41 mGy.cm HISTORY: Pain. Nausea. rlq abd pain hxt of clots TECHNIQUE: Multiaxial CT images of the abdomen and pelvis were performed following the use of intravenous contrast. A dose lowering technique was utilized adhering to the principles of ALARA. COMPARISON STUDY: None. FINDINGS: Minimal pleural reactive change both lung bases. Liver spleen and pancreas are unremarkable. Bowel pattern is nonobstructive. Appendix is normal. Findings of mild chronic sigmoid diverticulosis. No evidence for acute diverticulitis. Mild atherosclerotic change abdominal aorta with no evidence for aneurysmal distention. Nonobstructive bowel pattern. Unremarkable appendix. Chronic sigmoid diverticulosis. Bladder is midline. Inguinal regions are unremarkable. IMPRESSION: 1. Mild chronic sigmoid diverticulosis. 2. No evidence for bowel obstruction or appendicitis. 3. Otherwise negative study. The above report was generated using voice recognition software. It may contain grammatical, syntax or spelling errors. Electronically signed by: Keyur Sheehan M.D. 08/28/2017 7:11 PM Dictated Date/Time: 08/28/2017 7:03 PM
[2017-08-28 19:20] LABS: INR 2.2 (0.9-1.1)
[2017-08-28 20:50] VITALS: BP 137/70; PULSE 65; O2SAT 96
--- NOTE | 2017-08-28 22:05 | EMERGENCY ROOM VISIT NOTE ---
History Report prepared by Selvin: Danyel Arambula Under the Supervision of: Dr. Mookie Hester D.O. First contact with patient: 17:42 Chief Complaint: ABDOMINAL PAIN Stated Complaint: AB PAIN History of Present Illness The patient is an 86 year old female who presents to the Emergency Room with complaints of constant right lower quadrant pain for the past starting yesterday around 0500. The patient states that she had her right knee replaced 6 days ago, and she has been going to rehab for it, and she denies any tingling , numbness, or drainage in the leg. The patient states that nothing makes the pain better or worse. She states that she had a bowel movement this morning, and it was normal, and she has been able to eat and drink. She has a history of a hysterectomy, appendectomy, and Leiden Factor 5. She is currently on Coumadin , and she is unsure of when her last Coumadin check was. Pt denies headache, change in vision, fevers, cough, runny nose, chest pain, shortness of breath, nausea, vomiting, diarrhea, pain with urination, and melena. She still has her gall bladder. Source of History: patient Onset: 0500 Position: abdomen (RLQ) Timing: constant Modifying Factors (Worsening): other (nothing) Modifying Factors (Relieving): other (nothing) Associated Symptoms: No cough, No chest pain, No SOB, No weakness, No numbness Review of Systems See HPI for pertinent positives & negatives. A total of 10 systems reviewed and were otherwise negative. Past Medical & Surgical Medical Problems: (1) CVA (cerebral vascular accident) (2) DVT (deep venous thrombosis) (3) Hypothyroidism (4) Labyrinthitis (5) Rheumatoid arthritis (6) Right Knee DJD (7) Superficial phlebitis Surgical Problems: (1) History of appendectomy (2) History of hysterectomy (3) History of uterine suspension procedure Social History Smoking Status: Never Smoker Marital Status: Housing Status: lives with significant other Occupation Status: retired Current/Historical Medications Scheduled Acetaminophen (Tylenol), 1,000 MG PO Q8 Calcium Carbonate-Cholecalcife (Calcium 500+D 500-200 mg-Unit), 1 TAB PO QAM Docusate Sodium (Docusate Sodium), 100 MG PO BID Dorzolamide Hcl (Trusopt), 1 DROP OPB Q8 Ferrous Gluconate (Ferrous Gluconate), 324 MG PO BIDM Latanoprost (Xalatan 0.005% Oph Elisabeth), 1 DROP OPB HS Levothyroxine Sodium (Synthroid), 125 MCG PO QPM Magnesium Oxide (Mg Supplement (Magnesium), 400 MG PO QPM Multivitamins/Minerals (Mvi With Minerals), 1 TAB PO QAM Ocuvite Preservision (Ocuvite Preservision), 1 TAB PO BIDM Sennosides-Docusate Sodium (Docusate Sodium/Senna), 1 TAB PO HS Warfarin Sod (Jantoven), 7.5 MG PO UD Warfarin Sod (Coumadin), 5 MG PO UD Scheduled PRN Bisacodyl (Bisacodyl), 1 SUPP OK UD PRN for Constipation Ondasetron Odt (Zofran Odt), 4 MG SL Q4H PRN for Nausea or Vomiting Tramadol (Ultram), 50 MG PO Q4H PRN for Pain Allergies Coded Allergies: Oxycodone (Verified Allergy, Unknown, NAUSEA VOMITING DIZZY-WITH "ALL OF THEM", 08/22/17) Meperidine (Verified Adverse Reaction, Unknown, vomitting, 08/22/17) Physical Exam Vital Signs Date Time Temp Pulse Resp B/P (MAP) Pulse Ox O2 Delivery O2 Flow Rate FiO2 08/28/17 20:50 65 18 137/70 96 Room Air 08/28/17 18:45 64 18 128/61 98 Room Air 08/28/17 18:12 73 18 144/59 97 Room Air 08/28/17 17:43 65 08/28/17 17:32 37.2 71 18 150/58 97 Room Air Physical Exam GENERAL: Sitting up in bed, alert, well appearing, well nourished, no distress, non-toxic EYE EXAM: normal conjunctiva. OROPHARYNX: no exudate, no erythema, lips, buccal mucosa, and tongue normal and mucous membranes are moist NECK: supple, no nuchal rigidity, no adenopathy, non-tender LUNGS: Clear to auscultation. Normal chest wall mechanics HEART: no murmurs, S1 normal and S2 normal ABDOMEN: Tenderness to palpation in the right lower quadrant. Abdomen soft, normo-active bowel sounds, no masses, no rebound or guarding. BACK: Back is symmetrical on inspection and there is no deformity, no midline tenderness, no CVA tenderness. SKIN: no rashes and no bruising UPPER EXTREMITIES: upper extremities are grossly normal. LOWER EXTREMITIES: Incision over the right knee is clean dry and intact with mild swelling. No pitting edema. NEURO EXAM: Normal sensorium, cranial nerves II-XII grossly intact, normal speech, no gross weakness of arms Medical Decision & Procedures ER Provider Diagnostic Interpretation: Radiology results as stated below per my review and the radiologist's interpretation: ABD/PELVIS IV CONTRAST ONLY CT DOSE: 301.41 mGy.cm HISTORY: Pain. Nausea. rlq abd pain hxt of clots TECHNIQUE: Multiaxial CT images of the abdomen and pelvis were performed following the use of intravenous contrast. A dose lowering technique was utilized adhering to the principles of ALARA. COMPARISON STUDY: None. FINDINGS: Minimal pleural reactive change both lung bases. Liver spleen and pancreas are unremarkable. Bowel pattern is nonobstructive. Appendix is normal. Findings of mild chronic sigmoid diverticulosis. No evidence for acute diverticulitis. Mild atherosclerotic change abdominal aorta with no evidence for aneurysmal distention. Nonobstructive bowel pattern. Unremarkable appendix. Chronic sigmoid diverticulosis. Bladder is midline. Inguinal regions are unremarkable. IMPRESSION: 1. Mild chronic sigmoid diverticulosis. 2. No evidence for bowel obstruction or appendicitis. 3. Otherwise negative study. The above report was generated using voice recognition software. It may contain grammatical, syntax or spelling errors. Electronically signed by: Keyur Sheehan M.D. 08/28/2017 7:11 PM Dictated Date/Time: 08/28/2017 7:03 PM Laboratory Results 08/28/17 18:03 Red Blood Count 3.21, Mean Corpuscular Volume 100.9, Mean Corpuscular Hemoglobin 33.0, Mean Corpuscular Hemoglobin Concent 32.7, Mean Platelet Volume 9.4, Neutrophils (%) (Auto) 56.1, Lymphocytes (%) (Auto) 29.5, Monocytes (%) ( Auto) 10.1, Eosinophils (%) (Auto) 3.5, Basophils (%) (Auto) 0.1, Neutrophils # (Auto) 4.29, Lymphocytes # (Auto) 2.26, Monocytes # (Auto) 0.77, Eosinophils # ( Auto) 0.27, Basophils # (Auto) 0.01 08/28/17 18:03 Test 08/28/17 18:03 08/28/17 19:30 White Blood Count 7.65 K/uL (4.8-10.8) Red Blood Count 3.21 M/uL (4.2-5.4) Hemoglobin 10.6 g/dL (12.0-16.0) Hematocrit 32.4 % (37-47) Mean Corpuscular Volume 100.9 fL (80-100) Mean Corpuscular Hemoglobin 33.0 pg (25-34) Mean Corpuscular Hemoglobin Concent 32.7 g/dl (32-36) Platelet Count 336 K/uL (130-400) Mean Platelet Volume 9.4 fL (7.4-10.4) Neutrophils (%) (Auto) 56.1 % Lymphocytes (%) (Auto) 29.5 % Monocytes (%) (Auto) 10.1 % Eosinophils (%) (Auto) 3.5 % Basophils (%) (Auto) 0.1 % Neutrophils # (Auto) 4.29 K/uL (1.4-6.5) Lymphocytes # (Auto) 2.26 K/uL (1.2-3.4) Monocytes # (Auto) 0.77 K/uL (0.11-0.59) Eosinophils # (Auto) 0.27 K/uL (0-0.5) Basophils # (Auto) 0.01 K/uL (0-0.2) RDW Standard Deviation 53.5 fL (36.4-46.3) RDW Coefficient of Variation 14.4 % (11.5-14.5) Immature Granulocyte % (Auto) 0.7 % Immature Granulocyte # (Auto) 0.05 K/uL (0.00-0.02) Prothrombin Time 22.4 SECONDS (9.0-12.0) Prothromb Time International Ratio 2.2 (0.9-1.1) Anion Gap 6.0 mmol/L (3-11) Est Creatinine Clear Calc Drug Dose 32.9 ml/min Estimated GFR () 49.9 Estimated GFR (Non- 43.0 BUN/Creatinine Ratio 19.8 (10-20) Calcium Level 9.0 mg/dl (8.5-10.1) Total Bilirubin 0.4 mg/dl (0.2-1) Direct Bilirubin 0.1 mg/dl (0-0.2) Aspartate Amino Transf (AST/SGOT) 128 U/L (15-37) Alanine Aminotransferase (ALT/SGPT) 107 U/L (12-78) Alkaline Phosphatase 107 U/L (45-117) Total Protein 6.5 gm/dl (6.4-8.2) Albumin 2.8 gm/dl (3.4-5.0) Lipase 66 U/L (73-393) Urine Color YELLOW Urine Appearance CLEAR (CLEAR) Urine pH 8.0 (4.5-7.5) Urine Specific [place] 1.018 (1.000-1.030) Urine Protein NEG (NEG) Urine Glucose (UA) NEG (NEG) Urine Ketones NEG (NEG) Urine Occult Blood NEG (NEG) Urine Nitrite NEG (NEG) Urine Bilirubin NEG (NEG) Urine Urobilinogen NEG (NEG) Urine Leukocyte Esterase TRACE (NEG) Urine WBC (Auto) 1-5 /hpf (0-5) Urine RBC (Auto) 0-4 /hpf (0-4) Urine Hyaline Casts (Auto) 0 /lpf (0-5) Urine Epithelial Cells (Auto) 5-10 /lpf (0-5) Urine Bacteria (Auto) NEG (NEG) Laboratory results per my review. ED Course ED COURSE: Vital signs were reviewed and showed situational hypertension The patients medical record was reviewed The above diagnostic studies were performed and reviewed. ED treatments and interventions as stated above. 1742: The patient was evaluated in room B9. A complete history and physical examination was performed. 1950: The patient is requesting an ultrasound of the abdomen for a blood clot, though we had a long conversation, and she is not going to get one. I offered to perform an US of the patient's leg, and she states that she odes not have any pain 2002: Upon reevaluation, the patient is doing well.I discussed my findings with the patient and she understands and agrees with the treatment plan. Based on the patients age, coexisting illnesses, exam and lab findings the decision to treat as an outpatient was made. The patient remained stable while under my care. The patient appeared well at the time of discharge. Medical Decision Differential diagnoses includes but is not limited to gastritis, peptic ulcer disease, GERD, gallbladder disease, pancreatitis, small bowel obstruction, acute coronary syndrome, pericarditis, ischemic bowel, irritable bowel disease, irritable bowel syndrome, appendicitis, diverticulitis, malignancy, hernia, urinary tract infection, torsion, perforation, trauma, infectious. Patient is an 86 her old female who presents to ER for right lower quadrant abdominal pain which has been present since this past Monday. On Monday she had her right knee replaced. She has been at rehabilitation improving. She has no new leg pain. Swelling is decreasing. Denies any chest pain or shortness of breath. Pain in her abdomen is persistent. History of appendectomy. On exam she is focally tender. No leukocytosis. Mild anemia 10.6. BMP and bilirubin was unremarkable. LFTs were slightly elevated. Lipase was normal. Instructed her to stop all Tylenol although she notes she is not really taking this. INR was therapeutic at 2.2. UA was unremarkable. Patient was updated regards to her findings following a negative CT. She was requesting an ultrasound of her abdomen to rule out a blood clot. I informed her that what to do this of her lower extremity although I do not think that she has a clot at this time and she does have a therapeutic INR. She declined the ultrasound noting that she just wanted it of her abdomen. Patient and son were updated bedside. She is discharged to follow-up with PCP. I do believe it 's likely musculoskeletal secondary to the PT/surgery. Discussed with Pt concerning signs and symptoms to watch out for. Pt was instructed to follow up with their PCP and discussed with the patient their option to return to the ED at anytime for persistent or worsening symptoms. The appropriate anticipatory guidance and out-patient management, including indications for return to the emergency department, were explained at length to the patient and understood. Medication Reconcilliation Current Medication List: was personally reviewed by me Blood Pressure Screening Patient's blood pressure: Elevated blood pressure Blood pressure disposition: Elevated BP felt to be situational Impression Primary Impression: Right lower quadrant abdominal pain Scribe Attestation The scribe's documentation has been prepared under my direction and personally reviewed by me in its entirety. I confirm that the note above accurately reflects all work, treatment, procedures, and medical decision making performed by me. Departure Information Dispostion Home / Self-Care Referrals Eyal Dodge MD (PCP) Forms HOME CARE DOCUMENTATION FORM, IMPORTANT VISIT INFORMATION Patient Instructions Abdominal Pain, My [facility] Additional Instructions Please follow up with your primary care doctor with in the next 24 hours. Any worsening of your symptoms, please return to the ED immediately. This includes any fevers greater than 100.4, worsening pain, chest pain, shortness breath, persistent nausea, vomiting, unable to eat or drink, or any other concerning signs or symptoms from your standpoint. Your LFTs were slightly elevated. Please have this followed up and rechecked within the next 4-[address] of the abdomen and pelvis was unremarkable. INR was therapeutic at 2.2.
== END 2017-08-28 20:40 | disposition home or self-care (01) ==
LOC: EDBD 17:32 → C.EDB 17:34
DX: R10.31 Right lower quadrant pain (principal); D64.9 Anemia, unspecified; R79.89 Other specified abnormal findings of blood chemistry; R03.0 Elevated blood-pressure reading, without diagnosis of hypertension; E03.9 Hypothyroidism, unspecified; Z96.651 Presence of right artificial knee joint; Z98.890 Other specified postprocedural states; Z79.01 Long term (current) use of anticoagulants; Z86.718 Personal history of other venous thrombosis and embolism; Z88.6 Allergy status to analgesic agent

== ENCOUNTER 2017-09-10 10:56 | Inpatient (IN) | payer OTHER, BC ==
[~2017-09-10] VITALS: Ht 167.6 cm; Wt 61.3 kg
[~2017-09-10 10:56] MED LIST changes: +ACET-1256 PO; -ACET-1693 PO; -ACET-24 PO; +BISA10SU5 PR; +CALC-464 PO; -CALCTAB7 PO; +DOCU100C31 PO; +FERR325T18 PO; -FRRG PO; +ONDA4TAB10 SL; -POTA1TAB PO; +SENN8.6T36 PO; +TRAM-10 PO; -ULT50X PO
--- NOTE | 2017-09-10 12:23 | DIAGNOSTIC IMAGING REPORT ---
CHEST ONE VIEW PORTABLE CLINICAL HISTORY: Hypoxia COMPARISON STUDY: 08/03/2017 FINDINGS: The heart is borderline enlarged. There is a suboptimal inspiration with bronchovascular crowding at the lung bases. There is no focal pulmonary consolidation. There is no overt failure. Mild right hilar prominence is likely vascular[ IMPRESSION: Poor inspiration with bronchovascular crowding at the lung bases. No evidence of lobar consolidation. Mild right hilar fullness, likely vascular. Electronically signed by: Yuri Santana M.D. 09/10/2017 12:22 PM Dictated Date/Time: 09/10/2017 12:20 PM
--- NOTE | 2017-09-10 12:27 | DIAGNOSTIC IMAGING REPORT ---
R KNEE 1 OR 2 VIEWS ROUTINE CLINICAL HISTORY: Right knee pain COMPARISON: None. DISCUSSION: There are postsurgical changes of a total right knee arthroplasty, and patellar resurfacing. No fractures or dislocations are visualized. There is an equivocal small joint effusion. IMPRESSION: Postsurgical change. No fractures identified. Equivocal small joint effusion Electronically signed by: Yuri Santana M.D. 09/10/2017 12:25 PM Dictated Date/Time: 09/10/2017 12:25 PM
[2017-09-10] MEDS ORDERED: ALBUT/IPRATROP 3MG/0.5MG NEB 3 ML VIAL INH STA (12:29)
--- NOTE | 2017-09-10 12:34 | EMERGENCY ROOM VISIT NOTE ---
History Report prepared by Selvin: Allen Trevino Under the Supervision of: Dr. Bryant Corona M.D. First contact with patient: 12:01 Chief Complaint: KNEEPAIN Stated Complaint: KNEE PAIN History of Present Illness The patient is a 87 year old white female with a past medical history of lung blood clots, hypotension, DVT, and CVA who presents to the ED with a cc of constant nausea beginning last night. She rates her discomfort as a 6/10 in severity. The patient is accompanied by her daughter who states the patient had a total knee arthroplasty on August [address] Lebron. She reports that the patient has been experiencing right leg and knee pain since. She states that the patient has been in [facility] but was discharged a couple of days ago. Her daughter reports the patient went to the ED on the and had an ultrasound performed looking for a blood clot. She states that the ultrasound was negative for a clot. Her daughter states that the patient has been complaining of dull and intermittently sharp abdominal pain since the . Positive dry "crackling" cough, cold, febrile, abdominal pain, right knee pain, right leg pain, Coumadin use. Negative vomiting, short of breath, chest pain, smoking, urinary symptoms, abnormal bowel movements, oxygen use, lack of appetite, lack of fluid intake. Source of History: patient, family Onset: last night Position: other (global) Symptom Intensity: 6/10 Timing: constant Associated Symptoms: + fevers, + cough, + abdominal pain, No chest pain, No SOB, No vomiting, No urinary symptoms Review of Systems See HPI for pertinent positives and negatives. A total of ten systems were reviewed and were otherwise negative. Past Medical & Surgical Medical Problems: (1) CVA (cerebral vascular accident) (2) DVT (deep venous thrombosis) (3) Hypothyroidism (4) Labyrinthitis (5) Pneumonia (6) Rheumatoid arthritis (7) Right Knee DJD (8) Superficial phlebitis Surgical Problems: (1) History of appendectomy (2) History of hysterectomy (3) History of uterine suspension procedure Family History Patient reports no known family medical history. Social History Smoking Status: Never Smoker Marital Status: Housing Status: lives with significant other Occupation Status: retired Current/Historical Medications Scheduled Acetaminophen (Tylenol), 1,000 MG PO Q8 Calcium Carbonate-Vitamin D (Calcium + D), 1 TAB PO DAILY Docusate Sodium (Docusate Sodium), 100 MG PO BID Dorzolamide Hcl (Trusopt), 1 DROP OPB Q8 Ferrous Gluconate (Ferrous Gluconate), 324 MG PO BIDM Latanoprost (Xalatan 0.005% Oph Elisabeth), 1 DROP OPB HS Levothyroxine Sodium (Synthroid), 125 MCG PO HS Lidocaine (Lidocaine), 1 PATCH TOP ONAMOFFPM Magnesium Oxide (Mg Supplement (Magnesium), 400 MG PO QPM Multiple Vitamins W/ Minerals (Ocuvite), 1 TAB PO BID Multivitamins/Minerals (Mvi With Minerals), 1 TAB PO QAM Sennosides-Docusate Sodium (Docusate Sodium/Senna), 1 TAB PO HS Warfarin Sod (Jantoven), 7.5 MG PO 6XWK Scheduled PRN Ondasetron Odt (Zofran Odt), 4 MG SL Q4H PRN for Nausea or Vomiting Tramadol (Ultram), 50 MG PO Q4H PRN for Pain Allergies Coded Allergies: Oxycodone (Verified Allergy, Unknown, NAUSEA VOMITING DIZZY-WITH "ALL OF THEM", 09/10/17) Meperidine (Verified Adverse Reaction, Unknown, vomitting, 09/10/17) Physical Exam Vital Signs Date Time Temp Pulse Resp B/P (MAP) Pulse Ox O2 Delivery O2 Flow Rate FiO2 09/10/17 12:56 76 20 111/52 95 Nasal Cannula 2.0 09/10/17 12:53 68 09/10/17 11:07 94 Nasal Cannula 2.0 09/10/17 11:03 37.4 75 20 117/61 88 Room Air Physical Exam GENERAL: Awake, alert, well-appearing, NAD, NC in place HENT: Normocephalic, atraumatic. EYES: Normal conjunctiva. Sclera non-icteric. NECK: Supple. No nuchal rigidity. FROM. RESPIRATORY: CTAB, left upper loberhonchi, wheezing, bibasilar crackles throughout. CARDIAC: RRR, no MRG ABDOMEN: Soft, mild RLQ TTP, BS+ MSK: No chest wall TTP, no LE edema, well healing incision over the right knee, mild warmth, no erythema, no fluctuance, compartment soft, NVI distally. NEURO: GCS 15, CN 2-12 intact, moves all 4s on command SKIN: No rash or jaundice noted. Medical Decision & Procedures ER Provider Diagnostic Interpretation: Radiology results as stated below per my review and radiologist interpretation: CHEST ONE VIEW PORTABLE CLINICAL HISTORY: Hypoxia COMPARISON STUDY: 08/03/2017 FINDINGS: The heart is borderline enlarged. There is a suboptimal inspiration with bronchovascular crowding at the lung bases. There is no focal pulmonary consolidation. There is no overt failure. Mild right hilar prominence is likely vascular[ IMPRESSION: Poor inspiration with bronchovascular crowding at the lung bases. No evidence of lobar consolidation. Mild right hilar fullness, likely vascular. Electronically signed by: Yuri Santana M.D. 09/10/2017 12:22 PM Dictated Date/Time: 09/10/2017 12:20 PM R KNEE 1 OR 2 VIEWS ROUTINE CLINICAL HISTORY: Right knee pain COMPARISON: None. DISCUSSION: There are postsurgical changes of a total right knee arthroplasty, and patellar resurfacing. No fractures or dislocations are visualized. There is an equivocal small joint effusion. IMPRESSION: Postsurgical change. No fractures identified. Equivocal small joint effusion Electronically signed by: Yuri Santana M.D. 09/10/2017 12:25 PM Dictated Date/Time: 09/10/2017 12:[address] ANGIOGRAM OF THE CHEST CLINICAL HISTORY: Cough. History of recent knee replacement COMPARISON STUDY: Chest x-ray dated 09/10/2017 TECHNIQUE: Following the IV administration of 94 mL of Optiray-320, CT angiogram of the thorax was performed from the thoracic inlet to the lung bases utilizing the pulmonary embolus protocol. Images are reviewed in the axial, sagittal, and coronal planes. IV contrast was administered without complication. MIP imaging was performed. A dose lowering technique was utilized adhering to the principles of ALARA. CT DOSE: FINDINGS: Right hilar lymph nodes are the upper limits of normal in size. There was no evidence of thoracic aortic dilatation. There were no pulmonary artery filling defects to indicate acute pulmonary embolism. No pleural effusions are visualized. There is respiratory motion artifact. There is lower lobe bronchial wall thickening. There are dependent atelectatic changes. IMPRESSION: 1. No evidence of acute pulmonary embolism 2. Mild lower lobe bronchial wall thickening and atelectasis Electronically signed by: Yuri Santana M.D. 09/10/2017 2:07 PM Dictated Date/Time: 09/10/2017 2:[address] ABD/PELVIS IV CONTRAST ONLY CLINICAL HISTORY: Right lower quadrant abdominal pain COMPARISON STUDY: August 28, 2017 TECHNIQUE: Following the IV administration of 94 mL of Optiray-320, CT scan of the abdomen and pelvis was performed from the lung bases to the proximal femurs. Images are reviewed in the axial, sagittal, and coronal planes. IV contrast was administered without complication. A dose lowering technique was utilized adhering to the principles of ALARA. CT DOSE: 745.22 mGy.cm FINDINGS: Lower chest: There is bibasal or bronchial wall thickening and atelectatic change. Liver: The contrast-enhanced liver is normal in size, contour, and attenuation. There is no intrahepatic biliary ductal dilatation. The hepatic veins and portal veins are patent. Gallbladder: Unremarkable. Spleen: Normal in size and attenuation. Pancreas: Unremarkable. Adrenal glands: Unremarkable. Kidneys: There is symmetric renal cortical enhancement. The kidneys are normal in size without hydronephrosis. Bowel: There are no transition zones indicate bowel obstruction. There is moderate colonic diverticulosis. There are no acute peridiverticular inflammatory changes. There are no findings to indicate acute appendicitis. There is a mobile cecum. Peritoneum: There is a small amount of free pelvic fluid. No free air is visualized. Vasculature: The abdominal aorta is normal in course and caliber. Adenopathy: None. Pelvic viscera: The uterus appears surgically absent Skeletal structures: The bones are osteopenic. There are L3 endplate deformities. IMPRESSION: 1. Lower lobe bronchial wall thickening and atelectatic change 2. Moderate sigmoid diverticulosis. No evidence of acute diverticulitis 3. Mobile cecum which is currently positioned within the right central abdomen. No current evidence of significant obstruction 4. No evidence of retroperitoneal hemorrhage Electronically signed by: Yuri Santana M.D. 09/10/2017 2:04 PM Dictated Date/Time: 09/10/2017 1:58 PM Laboratory Results 09/10/17 12:54 Red Blood Count 3.19, Mean Corpuscular Volume 98.7, Mean Corpuscular Hemoglobin 33.2, Mean Corpuscular Hemoglobin Concent 33.7, Mean Platelet Volume 8.4, Neutrophils (%) (Auto) 79.5, Lymphocytes (%) (Auto) 13.8, Monocytes (%) (Auto) 6.1, Eosinophils (%) (Auto) 0.2, Basophils (%) (Auto) 0.1, Neutrophils # (Auto) 13.78, Lymphocytes # (Auto) 2.39, Monocytes # (Auto) 1.05, Eosinophils # (Auto) 0.03, Basophils # (Auto) 0.02 09/10/17 12:46 Test 09/10/17 12:40 09/10/17 12:46 09/10/17 12:54 09/10/17 14:05 Influenza Type A Antigen Neg for Influ A (NEG) Influenza Type B Antigen Neg for Influ B (NEG) Prothrombin Time 15.4 SECONDS (9.0-12.0) Prothromb Time International Ratio 1.5 (0.9-1.1) Activated Partial Thromboplast Time 37.1 SECONDS (21.0-31.0) Partial Thromboplastin Ratio 1.4 D-Dimer 2160 ug/L FEU (0-500) Anion Gap 8.0 mmol/L (3-11) Est Creatinine Clear Calc Drug Dose 34.3 ml/min Estimated GFR () 53.5 Estimated GFR (Non- 46.1 BUN/Creatinine Ratio 26.9 (10-20) Calcium Level 8.6 mg/dl (8.5-10.1) Total Bilirubin 0.5 mg/dl (0.2-1) Aspartate Amino Transf (AST/SGOT) 35 U/L (15-37) Alanine Aminotransferase (ALT/SGPT) 57 U/L (12-78) Alkaline Phosphatase 92 U/L (45-117) Troponin I < 0.015 ng/ml (0-0.045) Pro-B-Type Natriuretic Peptide 1481 pg/ml (0-1800) Total Protein 6.3 gm/dl (6.4-8.2) Albumin 3.1 gm/dl (3.4-5.0) Globulin 3.2 gm/dl (2.5-4.0) Albumin/Globulin Ratio 1.0 (0.9-2) Procalcitonin 0.55 ng/ml (0-0.5) White Blood Count 17.33 K/uL (4.8-10.8) Red Blood Count 3.19 M/uL (4.2-5.4) Hemoglobin 10.6 g/dL (12.0-16.0) Hematocrit 31.5 % (37-47) Mean Corpuscular Volume 98.7 fL (80-100) Mean Corpuscular Hemoglobin 33.2 pg (25-34) Mean Corpuscular Hemoglobin Concent 33.7 g/dl (32-36) Platelet Count 413 K/uL (130-400) Mean Platelet Volume 8.4 fL (7.4-10.4) Neutrophils (%) (Auto) 79.5 % Lymphocytes (%) (Auto) 13.8 % Monocytes (%) (Auto) 6.1 % Eosinophils (%) (Auto) 0.2 % Basophils (%) (Auto) 0.1 % Neutrophils # (Auto) 13.78 K/uL (1.4-6.5) Lymphocytes # (Auto) 2.39 K/uL (1.2-3.4) Monocytes # (Auto) 1.05 K/uL (0.11-0.59) Eosinophils # (Auto) 0.03 K/uL (0-0.5) Basophils # (Auto) 0.02 K/uL (0-0.2) RDW Standard Deviation 57.9 fL (36.4-46.3) RDW Coefficient of Variation 15.9 % (11.5-14.5) Immature Granulocyte % (Auto) 0.3 % Immature Granulocyte # (Auto) 0.06 K/uL (0.00-0.02) Venous Blood pH 7.44 (7.36-7.41) Venous Blood Partial Pressure CO2 36 mmHg (38.0-50.0) Venous Blood Partial Pressure O2 69 mmHg Venous Blood HCO3 24 mmol/L Venous Blood Oxygen Saturation 93.4 % Venous Blood Base Excess -0.1 mEq/L Urine Color YELLOW Urine Appearance CLEAR (CLEAR) Urine pH 5.5 (4.5-7.5) Urine Specific [place] 1.019 (1.000-1.030) Urine Protein NEG (NEG) Urine Glucose (UA) NEG (NEG) Urine Ketones NEG (NEG) Urine Occult Blood 1+ (NEG) Urine Nitrite NEG (NEG) Urine Bilirubin NEG (NEG) Urine Urobilinogen NEG (NEG) Urine Leukocyte Esterase TRACE (NEG) Urine WBC (Auto) 1-5 /hpf (0-5) Urine RBC (Auto) 5-10 /hpf (0-4) Urine Hyaline Casts (Auto) 0 /lpf (0-5) Urine Epithelial Cells (Auto) 10-20 /lpf (0-5) Urine Bacteria (Auto) NEG (NEG) Laboratory results reviewed by me Medications Administered Medications (Trade) Dose Ordered Sig/Joann Route Start Time Stop Time Status Last Admin Dose Admin Albuterol/ Ipratropium (Duoneb) 3 ml NOW STAT INH 09/10/17 12:29 09/10/17 12:31 DC 09/10/17 12:46 3 ML Ondansetron HCl (Zofran Inj) 4 mg NOW STAT IV 09/10/17 12:43 09/10/17 12:45 DC 09/10/17 12:54 4 MG Acetaminophen (Tylenol Tab) 650 mg NOW STAT PO 09/10/17 13:27 09/10/17 13:28 DC 09/10/17 13:31 650 MG Sodium Chloride 500 ml @ 999 mls/hr Q31M STAT IV 09/10/17 14:20 09/10/17 14:50 DC 09/10/17 14:35 999 MLS/HR Vancomycin HCl 1000 mg/Sodium Chloride 270 ml @ 125 mls/hr NOW STAT IV 09/10/17 14:32 09/10/17 16:41 DC 09/10/17 16:33 125 MLS/HR Piperacillin Sod/ Tazobactam Sod (Zosyn Iv) 4.5 gm NOW STAT IV 09/10/17 14:32 09/10/17 14:34 DC 09/10/17 14:32 4.5 GM ECG Per My Interpretation Indication: nausea Rate (beats per minute): 68 Rhythm: normal sinus Findings: T-wave inversion (single in lead III), left axis deviation, no ectopy , other (Normal intervals) ED Course 1223: The patient was evaluated in room B06. A complete history and physical exam was performed. 1426: I discussed the patients case with Dr. Arthur, [facility] Hospitalist. She understands the patients condition and agrees to accept the patient. The patient will be further evaluated. 1430: Upon reexamination, the patient was resting comfortably. I discussed the test results and treatment plan with the patient. The patient will be evaluated for further management. Medical Decision Triage Nursing notes reviewed. The patient is a 87 year old white female with a past medical history of lung blood clots, hypotension, DVT, and CVA who presents to the ED with a cc of constant nausea beginning last night. The patient's presentation and history were concerning for etiologies such as appendicitis, diverticulitis, PUD, biliary pathology, UTI, pancreatitis, obstruction, mesenteric ischemia, aortic pathology, infections, inflammatory bowel disease, renal colic, as well as others were entertained. Patient was seen and evaluated at the bedside. Patient does have a prior history of DVTs on Coumadin, already, prior CVA without deficits. Patient did undergo a right TKA with Dr. Lebron on August 22. Patient was sent to [facility] and discharged home. Patient has had a persistent cough. Patient does have some rhonchi and crackles on exam. Patient's knee looks fairly well- appearing. Patient also does complain his right lower quadrant tenderness to palpation. Patient did have blood work completed along with a CT PE protocol as well as CT of the abdomen pelvis given right lower quadrant pain. Patient is requiring some supplemental oxygen does not normally require this. This may be related to either PE or pneumonia. Patient CTP protocol negative for any acute infection or PE. However, given the patient's increased O2 requirement, elevated white blood cell count we will treat as potential healthcare associated pneumonia. Patient was placed on vancomycin and Zosyn. This was also in agreement of the hospitalist. The patient CT the abdomen pelvis is negative acute. Medication Reconcilliation Current Medication List: was personally reviewed by me Blood Pressure Screening Patient's blood pressure: Normal blood pressure Consults Time Called: 1426 Consulting Physician: Dr. Arthur [facility] Returned Call: 1426 I discussed the [facility] understands the patients condition and agrees to accept the patient. The patient will be further evaluated. Impression Primary Impression: PNA (pneumonia) Additional Impressions: Anemia Hypoxia Atelectasis of both lungs Scribe Attestation The scribe's documentation has been prepared under my direction and personally reviewed by me in its entirety. I confirm that the note above accurately reflects all work, treatment, procedures, and medical decision making performed by me. Departure Information Dispostion Being Evaluated By Hospitalist Referrals Eyal Dodge MD (PCP) Patient Instructions [facility] Problem Qualifiers Primary Impression: PNA (pneumonia) Pneumonia type: due to unspecified organism Laterality: right Lung location : lower lobe of lung Qualified Codes: J18.1 - Lobar pneumonia, unspecified organism Additional Impressions: Anemia Anemia type: unspecified type Qualified Codes: D64.9 - Anemia, unspecified
[2017-09-10] MEDS ORDERED: ONDANSETRON INJ 2 MG/ML 2 ML VIAL IV STA (12:43)
[2017-09-10] MEDS ORDERED: OPTIRAY 320 IV PRN (12:45)
[2017-09-10 13:02] LABS: HEMATOCRIT 31.5 % (37-47); HEMOGLOBIN 10.6 g/dL (12.0-16.0); MEAN CELL VOLUME 98.7 fL (80-100); MEAN CORPUSCULAR HEMOGLOBIN 33.2 pg (25-34); MEAN CORPUSCULAR HGB CONC 33.7 g/dl (32-36); MEAN PLATELET VOLUME 8.4 fL (7.4-10.4); PLATELET COUNT 413 K/uL (130-400); RED CELL DISTRIBUTION WIDTH CV 15.9 % (11.5-14.5); RED CELL DISTRIBUTION WIDTH SD 57.9 fL (36.4-46.3); WHITE BLOOD COUNT 17.33 K/uL (4.8-10.8)
[2017-09-10 13:12] LABS: INR 1.5 (0.9-1.1); PTT PATIENT 37.1 SECONDS (21.0-31.0)
[2017-09-10] MEDS ORDERED: LDDP5 TOP (13:14)
[2017-09-10] MEDS ORDERED: CALC600T9 PO (13:14)
[2017-09-10] MEDS ORDERED: MULT-188 PO (13:14)
[2017-09-10 13:21] LABS: ALBUMIN 3.1 gm/dl (3.4-5.0); ALT/SGPT 57 U/L (12-78); BLOOD UREA NITROGEN 29 mg/dl (7-18); CALCIUM 8.6 mg/dl (8.5-10.1); CARBON DIOXIDE 23 mmol/L (21-32); CREATININE 1.08 mg/dl (0.60-1.20); GLUCOSE 102 mg/dl (70-99); POTASSIUM 4.1 mmol/L (3.5-5.1); SODIUM 138 mmol/L (136-145)
[2017-09-10 13:26] LABS: ALKALINE PHOSPHATASE 92 U/L (45-117); AST/SGOT 35 U/L (15-37); TOTAL PROTEIN 6.3 gm/dl (6.4-8.2)
[2017-09-10] MEDS ORDERED: ACETAMINOPHEN 325 MG TAB PO STA (13:27)
[2017-09-10] MEDS ORDERED: ACETAMINOPHEN 325 MG TAB ONE (13:28)
[2017-09-10 13:30] LABS: BASO % 0.1 %; BASO ABS # 0.02 K/uL (0-0.2); EOS % 0.2 %; EOS ABS # 0.03 K/uL (0-0.5); IG# 0.06 K/uL (0.00-0.02); LYMPH % 13.8 %; LYMPH ABS # 2.39 K/uL (1.2-3.4); MONO % 6.1 %; MONO ABS # 1.05 K/uL (0.11-0.59); NEUT % 79.5 %; NEUT ABS # 13.78 K/uL (1.4-6.5)
--- NOTE | 2017-09-10 14:06 | DIAGNOSTIC IMAGING REPORT ---
CT ABD/PELVIS IV CONTRAST ONLY CLINICAL HISTORY: Right lower quadrant abdominal pain COMPARISON STUDY: August 28, 2017 TECHNIQUE: Following the IV administration of 94 mL of Optiray-320, CT scan of the abdomen and pelvis was performed from the lung bases to the proximal femurs. Images are reviewed in the axial, sagittal, and coronal planes. IV contrast was administered without complication. A dose lowering technique was utilized adhering to the principles of ALARA. CT DOSE: 745.22 mGy.cm FINDINGS: Lower chest: There is bibasal or bronchial wall thickening and atelectatic change. Liver: The contrast-enhanced liver is normal in size, contour, and attenuation. There is no intrahepatic biliary ductal dilatation. The hepatic veins and portal veins are patent. Gallbladder: Unremarkable. Spleen: Normal in size and attenuation. Pancreas: Unremarkable. Adrenal glands: Unremarkable. Kidneys: There is symmetric renal cortical enhancement. The kidneys are normal in size without hydronephrosis. Bowel: There are no transition zones indicate bowel obstruction. There is moderate colonic diverticulosis. There are no acute peridiverticular inflammatory changes. There are no findings to indicate acute appendicitis. There is a mobile cecum. Peritoneum: There is a small amount of free pelvic fluid. No free air is visualized. Vasculature: The abdominal aorta is normal in course and caliber. Adenopathy: None. Pelvic viscera: The uterus appears surgically absent Skeletal structures: The bones are osteopenic. There are L3 endplate deformities. IMPRESSION: 1. Lower lobe bronchial wall thickening and atelectatic change 2. Moderate sigmoid diverticulosis. No evidence of acute diverticulitis 3. Mobile cecum which is currently positioned within the right central abdomen. No current evidence of significant obstruction 4. No evidence of retroperitoneal hemorrhage Electronically signed by: Yuri Santana M.D. 09/10/2017 2:04 PM Dictated Date/Time: 09/10/2017 1:58 PM
--- NOTE | 2017-09-10 14:09 | DIAGNOSTIC IMAGING REPORT ---
CT ANGIOGRAM OF THE CHEST CLINICAL HISTORY: Cough. History of recent knee replacement COMPARISON STUDY: Chest x-ray dated 09/10/2017 TECHNIQUE: Following the IV administration of 94 mL of Optiray-320, CT angiogram of the thorax was performed from the thoracic inlet to the lung bases utilizing the pulmonary embolus protocol. Images are reviewed in the axial, sagittal, and coronal planes. IV contrast was administered without complication. MIP imaging was performed. A dose lowering technique was utilized adhering to the principles of ALARA. CT DOSE: FINDINGS: Right hilar lymph nodes are the upper limits of normal in size. There was no evidence of thoracic aortic dilatation. There were no pulmonary artery filling defects to indicate acute pulmonary embolism. No pleural effusions are visualized. There is respiratory motion artifact. There is lower lobe bronchial wall thickening. There are dependent atelectatic changes. IMPRESSION: 1. No evidence of acute pulmonary embolism 2. Mild lower lobe bronchial wall thickening and atelectasis Electronically signed by: Yuri Santana M.D. 09/10/2017 2:07 PM Dictated Date/Time: 09/10/2017 2:05 PM
[2017-09-10] MEDS ORDERED: SODIUM CHLORIDE 0.9% 500ML 500 ML IV STA (14:20)
[2017-09-10] MEDS ORDERED: VANCOMYCIN INJ 1,000 MG in SODIUM CHLORIDE 0.9% 250ML 250 ML IV STA (14:32)
[2017-09-10] MEDS ORDERED: PIPERACILLIN/TAZOBACTAM 4.5 GM/100ML D5W IV STA (14:32)
[2017-09-10 14:34] LABS: INFLUENZA B ANTIGEN Neg for Influ B (NEG)
--- NOTE | 2017-09-10 14:37 | History and Physical ---
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 just above the groin in ER pt was afebrile, vitals were stable Cxray showed no infiltrate , influenza titre negative CT abdomen /pelvis -no acute pathology rt knee Xray shows -post surgical change , no joint effusion noted on arrival to ER , pt was hypoxic 88% in RA improved to 94% with supplemental 02 2 L via Nasal canula Vitals on admission : temp 37.4/HR 77 /TT 20 /BP 117/60 Family History Patient reports no known family medical history. Social History Smoking Status: Never Smoker Marital Status: Occupational Status: retired Multi-Drug Resistant Organisms History of MDRO: No Allergies Coded Allergies: Oxycodone (Verified Allergy, Unknown, NAUSEA VOMITING DIZZY-WITH "ALL OF THEM", 09/10/17) Meperidine (Verified Adverse Reaction, Unknown, vomitting, 09/10/17) Home Medications Scheduled Acetaminophen (Tylenol), 1,000 MG PO Q8 Calcium Carbonate-Vitamin D (Calcium + D), 1 TAB PO DAILY Docusate Sodium (Docusate Sodium), 100 MG PO BID Dorzolamide Hcl (Trusopt), 1 DROP OPB Q8 Ferrous Gluconate (Ferrous Gluconate), 324 MG PO BIDM Latanoprost (Xalatan 0.005% Oph Elisabeth), 1 DROP OPB HS Levothyroxine Sodium (Synthroid), 125 MCG PO HS Lidocaine (Lidocaine), 1 PATCH TOP ONAMOFFPM Magnesium Oxide (Mg Supplement (Magnesium), 400 MG PO QPM Multiple Vitamins W/ Minerals (Ocuvite), 1 TAB PO BID Multivitamins/Minerals (Mvi With Minerals), 1 TAB PO QAM Sennosides-Docusate Sodium (Docusate Sodium/Senna), 1 TAB PO HS Warfarin Sod (Jantoven), 7.5 MG PO 6XWK Scheduled PRN Ondasetron Odt (Zofran Odt), 4 MG SL Q4H PRN for Nausea or Vomiting Tramadol (Ultram), 50 MG PO Q4H PRN for Pain Review of Systems Constitutional: + fever, + chills, + weakness, + fatigue Respiratory: + cough, + sputum, + wheezing, + shortness of breath Abdomen: + pain (Rt lower quadrant abdominal pain ), + nausea Genitourinary - Female: No dysuria, No urinary frequency, No urinary urgency, No urinary incontinence, No urinary retention, No hematuria, No dysmenorrhea, No menorrhagia, No metrorrhagia, No rash, No vaginal bleeding, No vaginal discharge, No vaginal itching, No vulvodynia, No , No problem reported Neurologic: + weakness, + vertigo, + balance problems Psychiatric: + anxiety Physical Exam Vital Signs Date Time Temp Pulse Resp B/P (MAP) Pulse Ox O2 Delivery O2 Flow Rate FiO2 09/10/17 12:56 76 20 111/52 95 Nasal Cannula 2.0 09/10/17 12:53 68 09/10/17 11:07 94 Nasal Cannula 2.0 09/10/17 11:03 37.4 75 20 117/61 88 Room Air General Appearance: + mild distress (anxious, ill appearing ) Head: normocephalic, atraumatic Eyes: normal inspection, PERRL, EOMI, sclerae normal ENT: + pertinent finding (dry oral mucosa ) Neck: no adenopathy, thyroid normal, no JVD, no carotid bruits, trachea midline Respiratory/Chest: no accessory muscle use, + accessory muscle use Cardiovascular: regular rate, rhythm, no edema, no JVD, normal peripheral pulses Abdomen/GI: soft, + tenderness (on rt lower quardrant , just above the rt hip joint area , no overlying skin rash or erythema noted ,) Extremities/Musculoskelatal: normal capillary refill, no pedal edema, + pertinent finding (rt knee -steri strips are present for TKA surgery ; + warmth , tenderness noted , no flactuation, no drainage , surgical wound healing well) Neurologic/Psych: alert, oriented x 3, + depressed affect Diagnostics Laboratory Results Results Past 24 Hours Test 09/10/17 12:40 09/10/17 12:46 09/10/17 12:54 09/10/17 14:05 Range/Units Influenza Type A Antigen Neg for Influ A NEG Influenza Type B Antigen Neg for Influ B NEG Prothrombin Time 15.4 9.0-12.0 SECONDS Prothromb Time International Ratio 1.5 0.9-1.1 Activated Partial Thromboplast Time 37.1 21.0-31.0 SECONDS Partial Thromboplastin Ratio 1.4 Sodium Level 138 136-145 mmol/L Potassium Level 4.1 3.5-5.1 mmol/L Chloride Level 107 98-107 mmol/L Carbon Dioxide Level 23 21-32 mmol/L Anion Gap 8.0 3-11 mmol/L Blood Urea Nitrogen 29 7-18 mg/dl Creatinine 1.08 0.60-1.20 mg/dl Est Creatinine Clear Calc Drug Dose 34.3 ml/min Estimated GFR () 53.5 Estimated GFR (Non- 46.1 BUN/Creatinine Ratio 26.9 10-20 Random Glucose 102 70-99 mg/dl Calcium Level 8.6 8.5-10.1 mg/dl Total Bilirubin 0.5 0.2-1 mg/dl Aspartate Amino Transf (AST/SGOT) 35 15-37 U/L Alanine Aminotransferase (ALT/SGPT) 57 12-78 U/L Alkaline Phosphatase 92 45-117 U/L Troponin I < 0.015 0-0.045 ng/ml Pro-B-Type Natriuretic Peptide 1481 0-1800 pg/ml Total Protein 6.3 6.4-8.2 gm/dl Albumin 3.1 3.4-5.0 gm/dl Globulin 3.2 2.5-4.0 gm/dl Albumin/Globulin Ratio 1.0 0.9-2 White Blood Count 17.33 4.8-10.8 K/uL Red Blood Count 3.19 4.2-5.4 M/uL Hemoglobin 10.6 12.0-16.0 g/dL Hematocrit 31.5 37-47 % Mean Corpuscular Volume 98.7 80-100 fL Mean Corpuscular Hemoglobin 33.2 25-34 pg Mean Corpuscular Hemoglobin Concent 33.7 32-36 g/dl Platelet Count 413 130-400 K/uL Mean Platelet Volume 8.4 7.4-10.4 fL Neutrophils (%) (Auto) 79.5 % Lymphocytes (%) (Auto) 13.8 % Monocytes (%) (Auto) 6.1 % Eosinophils (%) (Auto) 0.2 % Basophils (%) (Auto) 0.1 % Neutrophils # (Auto) 13.78 1.4-6.5 K/uL Lymphocytes # (Auto) 2.39 1.2-3.4 K/uL Monocytes # (Auto) 1.05 0.11-0.59 K/uL Eosinophils # (Auto) 0.03 0-0.5 K/uL Basophils # (Auto) 0.02 0-0.2 K/uL RDW Standard Deviation 57.9 36.4-46.3 fL RDW Coefficient of Variation 15.9 11.5-14.5 % Immature Granulocyte % (Auto) 0.3 % Immature Granulocyte # (Auto) 0.06 0.00-0.02 K/uL Venous Blood pH 7.44 7.36-7.41 Venous Blood Partial Pressure CO2 36 38.0-50.0 mmHg Venous Blood Partial Pressure O2 69 mmHg Venous Blood HCO3 24 mmol/L Venous Blood Oxygen Saturation 93.4 % Venous Blood Base Excess -0.1 mEq/L Test 09/10/17 14:32 Range/Units Microbiology Results 09/10/17 Blood Culture, Ordered Pending 09/10/17 Blood Culture, Ordered Pending Diagnostic Radiology CT CHEST WITH CONTRAST : CT DOSE: FINDINGS: Right hilar lymph nodes are the upper limits of normal in size. There was no evidence of thoracic aortic dilatation. There were no pulmonary artery filling defects to indicate acute pulmonary embolism. No pleural effusions are visualized. There is respiratory motion artifact. There is lower lobe bronchial wall thickening. There are dependent atelectatic changes. IMPRESSION: 1. No evidence of acute pulmonary embolism 2. Mild lower lobe bronchial wall thickening and atelectasis CT ABDOMEN/PELVIS : IMPRESSION: 1. Lower lobe bronchial wall thickening and atelectatic change 2. Moderate sigmoid diverticulosis. No evidence of acute diverticulitis 3. Mobile cecum which is currently positioned within the right central abdomen. No current evidence of significant obstruction 4. No evidence of retroperitoneal hemorrhage R KNEE 1 OR 2 VIEWS ROUTINE CLINICAL HISTORY: Right knee pain COMPARISON: None. DISCUSSION: There are postsurgical changes of a total right knee arthroplasty, and patellar resurfacing. No fractures or dislocations are visualized. There is an equivocal small joint effusion. IMPRESSION: Postsurgical change. No fractures identified. Equivocal small joint effusion CHEST XRAY : IMPRESSION: Poor inspiration with bronchovascular crowding at the lung bases. No evidence of lobar consolidation. Mild right hilar fullness, likely vascular. EKG Vent. rate 68 BPM DC interval 170 ms QRS duration 90 ms QT/QTc 410/435 ms P-R-T axes 52 -28 17 Normal sinus rhythm Normal ECG When compared with ECG of 31-JUL-2017 15:33, Premature atrial complexes are no longer Present Confirmed by DUNCAN JARAMILLO MD ([id number]) on 09/10/2017 2:46:17 PM Impression Assessment and Plan ACUTE HYPOXEMIC RESPIRATORY FAILURE : Possible due to viral illness had cough /sputum , congestion , low grade fever for past few days hypoxia improved with supplemental 02 influenza A titre -negative cxray shows bibasilar atelectasis CT chest with contrast no PE cont supportive care with 02, PRN neb tx MARKED LEUKOCYTOSIS : No evidence of infection noted ordered for beyer culture IV fluids repeat Labs in AM RT KNEE PAIN /RECENT KNEE SURGERY : no evidence of apparent infection noted in Rt knee Xray ordered for PT/OT pain management ORtho Dr Bernardino mcguire requested FACTOR V LEIDEN/HX OF DVT ON COUMADIN INR sub therapeutic 1,7 continue Coumadin foal INR 2-3 FLU LIKE SYMPTOM cont supportive care ; IV Fluids PRN Tylenol for fever RT LOWER ABDOMINAL PAIN : no pathology noted om CT abdomen /pelvis no report of diarrhea monitor daughter mentions the pain has started since Rt knee surgery may benefit with Rt hip Xray for eval of possible hip joint issue HYPOTHYROIDISM : cont statin FULL CODE DVT PROPHYLAXIS : coumadin Added Sub q Heparin till INR therapeutic DISPOSITION : PT/OT consulted prior to discharge daughter updated at bedside Level of Care Telemetry Resuscitation Status FULL RESUSCITATION VTE Prophylaxis VTE Risk Assessment Done? Y/N: Yes Risk Level: Moderate Given or contraindicated: Warfarin (Coumadin)
[2017-09-10] MEDS ORDERED: VANCOMYCIN CONSULT ACTIVE PRN (14:45)
[2017-09-10 14:48] VITALS: O2SAT 96; Ht 167.6 cm; Wt 61.3 kg
--- NOTE | 2017-09-10 16:27 | DIAGNOSTIC IMAGING REPORT ---
BILATERAL LOWER EXTREMITY VENOUS DOPPLER CLINICAL HISTORY: RULE OUT DVT ( HX OF DVT INR 1.5 ) COMPARISON STUDY: Right lower extremity venous Doppler October 19, 2016. TECHNIQUE: Sonography of the deep venous system of the bilateral lower extremities was performed. Compression and augmentation were evaluated. FINDINGS: There is no deep venous thrombus within the right lower extremity. There are stranding within the left posterior tibial vein which suggests chronic thrombus. IMPRESSION: 1. No evidence of acute deep venous thrombus within the bilateral lower extremities. 2. Stranding within the left posterior tibial vein which suggests minimal chronic thrombus. Electronically signed by: George Prince M.D. 09/10/2017 4:26 PM Dictated Date/Time: 09/10/2017 4:24 PM
[2017-09-10 16:43] VITALS: BP 121/54; PULSE 65; TEMP 36.8; O2SAT 96
[2017-09-10] MEDS ORDERED: ONDANSETRON INJ 2 MG/ML 2 ML VIAL IV PRN (17:45)
[2017-09-10] MEDS ORDERED: NITROGLYCERIN 0.4 MG SL PER TAB CHARGE SL PRN (17:45)
[2017-09-10] MEDS ORDERED: MAGNESIUM HYDROXIDE SUSP 30 ML UDC PO PRN (17:45)
[2017-09-10] MEDS ORDERED: POLYETHYLENE (MIRALAX) 17 GM PACK PO PRN (17:45)
[2017-09-10] MEDS ORDERED: ACETAMINOPHEN 325 MG TAB PO PRN (17:45)
[2017-09-10] MEDS ORDERED: ALUMINUM/MAGNESIUM/SIMETH (MAALOX MAX) 30 ML UDC PO PRN (17:45)
[2017-09-10] MEDS: WARFARIN SOD 7.5 MG TAB PO SCH (18:42)
[2017-09-10 18:48] VITALS: BP 97/47; PULSE 60; TEMP 37.2; O2SAT 93
[2017-09-10] MEDS ORDERED: SODIUM CHLORIDE 0.9% 1000ML 1,000 ML IV SCH (19:00)
[2017-09-10 20:00] VITALS: O2SAT 93
[2017-09-10] MEDS: TRAMADOL HCL 50 MG TAB PO PRN (20:05)
[2017-09-10] MEDS: LATANOPROST 0.005% OP SOLN 2.5 ML BTL OPB SCH (21:00)
[2017-09-10] MEDS: DOCUSATE SODIUM/SENNA 50/8.6MG TAB PO SCH (21:00)
[2017-09-10] MEDS: LEVOTHYROXINE 125 MCG TAB PO SCH (21:00)
[2017-09-10] MEDS: CEROVITE ADV FORMULA TAB PO SCH (21:00)
[2017-09-10] MEDS: MAGNESIUM OXIDE 400 MG TAB PO SCH (21:00)
[2017-09-10 23:35] VITALS: BP 99/45; PULSE 59; TEMP 36.7; O2SAT 97
[2017-09-11] VITALS (12 sets, daily range): BP systolic 104–142; BP diastolic 52–59; PULSE 57–73; TEMP 36.4–37; O2SAT 93–97
[2017-09-11 00:40] LABS: INFLUENZA A PCR Neg for Influ A (NEG); INFLUENZA B PCR Neg for Influ B (NEG)
[2017-09-11] MEDS: TRAMADOL HCL 50 MG TAB PO PRN (02:28)
[2017-09-11] MEDS: ACETAMINOPHEN 325 MG TAB PO SCH ×5 (06:15→23:15)
[2017-09-11 06:43] LABS: HEMATOCRIT 30.3 % (37-47); HEMOGLOBIN 9.9 g/dL (12.0-16.0); MEAN CORPUSCULAR HEMOGLOBIN 33.3 pg (25-34); MEAN CORPUSCULAR HGB CONC 32.7 g/dl (32-36); MEAN PLATELET VOLUME 8.5 fL (7.4-10.4); PLATELET COUNT 346 K/uL (130-400); RED CELL DISTRIBUTION WIDTH CV 16.3 % (11.5-14.5); RED CELL DISTRIBUTION WIDTH SD 60.4 fL (36.4-46.3); WHITE BLOOD COUNT 10.13 K/uL (4.8-10.8)
[2017-09-11 07:08] LABS: INR 1.8 (0.9-1.1)
[2017-09-11 07:21] LABS: ALBUMIN 2.7 gm/dl (3.4-5.0); ALT/SGPT 46 U/L (12-78); BLOOD UREA NITROGEN 27 mg/dl (7-18); CALCIUM 8.1 mg/dl (8.5-10.1); CARBON DIOXIDE 26 mmol/L (21-32); CREATININE 1.18 mg/dl (0.60-1.20); GLUCOSE 85 mg/dl (70-99); POTASSIUM 4.1 mmol/L (3.5-5.1); SODIUM 141 mmol/L (136-145)
[2017-09-11 07:24] LABS: ALKALINE PHOSPHATASE 86 U/L (45-117); AST/SGOT 26 U/L (15-37); TOTAL PROTEIN 5.8 gm/dl (6.4-8.2)
--- NOTE | 2017-09-11 07:32 | ORTHOPEDIC CONSULTATION ---
DATE OF CONSULTATION: 09/11/2017 SUBJECTIVE: An 87-year-old female, now 3 weeks out from a right knee replacement, readmitted yesterday for cough and possible pneumonia. She says her knee is doing fine. Pain is controlled. No other complaints with respect to that. She does not appear markedly short of breath. She says that she came in because she had a fever. On review of her vitals, there are no signs of fever. OBJECTIVE: VITAL SIGNS: Temperature is 36.5. Vital signs stable. GENERAL: Reveals a pleasant, thin elderly female. She is lying in bed, looks completely comfortable. She is breathing comfortably. EXTREMITIES: Examination of the right leg reveals the incision to be healed nicely. There is not much swelling. Her calves are soft and supple. NEUROLOGIC: She is neurologically intact. LABORATORY DATA: White cell count is 10.13 this morning. Hemoglobin 9.9. Hematocrit 30.3. Electrolytes are pending. INR 1.8. IMAGING TESTS: Chest CT is negative for PE. Ultrasound is negative for DVT. ASSESSMENT: An 87-year-old female, 3 weeks out from right total knee replacement, readmitted for what she says is cough and possible pneumonia. Her knee exam is benign. Knee looks to be doing reasonably well. She does not need to be in the hospital from an orthopedic standpoint. Having said that, it is important for her to continue therapy to make sure her knee recovers appropriately. PLAN: 1. DVT prophylaxis including thigh-high TEDs, SCDs, and she is on Coumadin. The goal will be to keep her INR between 2 and 3. 2. PT/OT. We will write for her therapy. Most important thing is just knee range of motion. 3. Medicine service. 4. Disposition: She is orthopedically okay for discharge any time medically stable. I need to see her back about 3 weeks from now for her standard 6 week visit. Any orthopedic questions can be directed to me at [phone].
[2017-09-11] MEDS: FERROUS GLUCONATE 324 MG TAB PO SCH ×2 (08:26→16:24)
[2017-09-11] MEDS: CALCIUM 600MG + VIT D 400 IU TAB PO SCH (08:26)
[2017-09-11] MEDS: CEROVITE ADV FORMULA TAB PO SCH ×3 (08:27→20:49)
[2017-09-11] MEDS: LIDODERM (LIDOCAINE) PATCH 5% TD SCH (08:27)
--- NOTE | 2017-09-11 09:53 | Clinical Documentation Query ---
JENNIFER Andrews : CLINICAL DOCUMENTATION QUERY Patient is an 87 year old female admitted for evaluation and treatment of acute hypoxemic respiratory failure in the setting of cough, low grade fever, sputum, and hypoxia. Documentation includes "possible due to viral illness". As appropriate, consider documentation as suggested below as this is more specific and aids in accurate DRG assignment. Thank you. In your clinical opinion is this patient being managed for: ( ) (Possible/Suspected) Viral infection ( ) Not Agree ( ) Other explanation of clinical findings (Please Explain) (x) Unable to determine (Please Define) ( ) Need to Discuss This person is not my patient The medical record reflects the following clinical findings, treatment, and risk factors. Clinical Indicators: As above. Discontinuation of antibiotics, negative chest radiograph Treatment: Supplemental O2, supportive care Risk Factors: Age, seasonal viral activity Please clarify and document your clinical opinion in the progress notes and discharge summary. Terms such as "probable", "suspected", "likely", "questionable", "possible", or "still to be ruled out" are acceptable. IF IN AGREEMENT, YOU MUST DOCUMENT ABOVE DIAGNOSTIC STATEMENT IN DAILY PROGRESS NOTES AND DISCHARGE SUMMARY. This document is not part of the patient's record. Thank You, Crescencio Wallace, RN [phone]
--- NOTE | 2017-09-11 12:08 | Clinical Documentation Query ---
RYAN Sexton : CLINICAL DOCUMENTATION QUERY Patient is an 87 year old female admitted for evaluation and treatment of acute hypoxemic respiratory failure in the setting of cough, low grade fever, sputum, and hypoxia. Documentation includes "possible due to viral illness". As appropriate, consider documentation as suggested below as this is more specific and aids in accurate DRG assignment. Thank you. In your clinical opinion is this patient being managed for: ( ) (Possible/Suspected) Viral infection ( ) Not Agree ( ) Other explanation of clinical findings (Please Explain) ( ) Unable to determine (Please Define) ( ) Need to Discuss The medical record reflects the following clinical findings, treatment, and risk factors. Clinical Indicators: As above. Discontinuation of antibiotics, negative chest radiograph Treatment: Supplemental O2, supportive care Risk Factors: Age, seasonal viral activity Please clarify and document your clinical opinion in the progress notes and discharge summary. Terms such as "probable", "suspected", "likely", "questionable", "possible", or "still to be ruled out" are acceptable. IF IN AGREEMENT, YOU MUST DOCUMENT ABOVE DIAGNOSTIC STATEMENT IN DAILY PROGRESS NOTES AND DISCHARGE SUMMARY. This document is not part of the patient's record. Thank You, Crescencio Wallace, RN [phone]
--- NOTE | 2017-09-11 12:36 | Progress Note ---
Medicine Progress Note Date & Time of Visit: Sep 11, 2017 at 12:11. Subjective seen sitting in chair, comfortable states she feels much better denies dyspnea, cough, fever/chills, cough denies knee pain no abdominal pain, nausea/vomiting problems with urination or BMs denies other symptoms Objective Last 8 Hrs Date Time Temp Pulse Resp B/P (MAP) Pulse Ox O2 Delivery O2 Flow Rate FiO2 09/11/17 08:17 37.0 60 22 104/58 (73) 93 Room Air 09/11/17 08:00 95 Room Air Physical Exam: General- oriented x 3, not in distress, speaks in sentences with no effort Head- atraumatic Eyes- PERRL, EOMI, anicteric ENT- oropharynx clear Neck- supple, no JVD, no adenopathy, no thyromegaly; carotids +2/2 Lungs- very mild rhonchi at the bases bilaterally, no rales/wheezes Heart- regular rhythm; no murmur, normal rate Abdomen- normal bowel sounds, soft, nontender Extremities- no pretibial edema, no calf tenderness; peripheral pulses intact Right Knee- sutures intact, no erythema/tenderness/warmth Neuro- alert, oriented x 3; no gross focal deficits Skin- warm & dry Laboratory Results: Last 24 Hours Test 09/10/17 12:40 09/10/17 12:46 09/10/17 12:54 09/10/17 14:05 Influenza Type A (RT-PCR) Neg for Influ A Influenza Type A Antigen Neg for Influ A Influenza Type B Antigen Neg for Influ B Influenza Type B (RT-PCR) Neg for Influ B Prothrombin Time 15.4 SECONDS Prothromb Time International Ratio 1.5 Activated Partial Thromboplast Time 37.1 SECONDS Partial Thromboplastin Ratio 1.4 D-Dimer 2160 ug/L FEU Sodium Level 138 mmol/L Potassium Level 4.1 mmol/L Chloride Level 107 mmol/L Carbon Dioxide Level 23 mmol/L Anion Gap 8.0 mmol/L Blood Urea Nitrogen 29 mg/dl Creatinine 1.08 mg/dl Est Creatinine Clear Calc Drug Dose 34.3 ml/min Estimated GFR () 53.5 Estimated GFR (Non- 46.1 BUN/Creatinine Ratio 26.9 Random Glucose 102 mg/dl Calcium Level 8.6 mg/dl Total Bilirubin 0.5 mg/dl Aspartate Amino Transf (AST/SGOT) 35 U/L Alanine Aminotransferase (ALT/SGPT) 57 U/L Alkaline Phosphatase 92 U/L Troponin I < 0.015 ng/ml Pro-B-Type Natriuretic Peptide 1481 pg/ml Total Protein 6.3 gm/dl Albumin 3.1 gm/dl Globulin 3.2 gm/dl Albumin/Globulin Ratio 1.0 Procalcitonin 0.55 ng/ml White Blood Count 17.33 K/uL Red Blood Count 3.19 M/uL Hemoglobin 10.6 g/dL Hematocrit 31.5 % Mean Corpuscular Volume 98.7 fL Mean Corpuscular Hemoglobin 33.2 pg Mean Corpuscular Hemoglobin Concent 33.7 g/dl Platelet Count 413 K/uL Mean Platelet Volume 8.4 fL Neutrophils (%) (Auto) 79.5 % Lymphocytes (%) (Auto) 13.8 % Monocytes (%) (Auto) 6.1 % Eosinophils (%) (Auto) 0.2 % Basophils (%) (Auto) 0.1 % Neutrophils # (Auto) 13.78 K/uL Lymphocytes # (Auto) 2.39 K/uL Monocytes # (Auto) 1.05 K/uL Eosinophils # (Auto) 0.03 K/uL Basophils # (Auto) 0.02 K/uL RDW Standard Deviation 57.9 fL RDW Coefficient of Variation 15.9 % Immature Granulocyte % (Auto) 0.3 % Immature Granulocyte # (Auto) 0.06 K/uL Venous Blood pH 7.44 Venous Blood Partial Pressure CO2 36 mmHg Venous Blood Partial Pressure O2 69 mmHg Venous Blood HCO3 24 mmol/L Venous Blood Oxygen Saturation 93.4 % Venous Blood Base Excess -0.1 mEq/L Urine Color YELLOW Urine Appearance CLEAR Urine pH 5.5 Urine Specific [place] 1.019 Urine Protein NEG Urine Glucose (UA) NEG Urine Ketones NEG Urine Occult Blood 1+ Urine Nitrite NEG Urine Bilirubin NEG Urine Urobilinogen NEG Urine Leukocyte Esterase TRACE Urine WBC (Auto) 1-5 /hpf Urine RBC (Auto) 5-10 /hpf Urine Hyaline Casts (Auto) 0 /lpf Urine Epithelial Cells (Auto) 10-20 /lpf Urine Bacteria (Auto) NEG Test 09/10/17 15:46 09/11/17 06:31 Lactic Acid Level 1.2 mmol/L White Blood Count 10.13 K/uL Red Blood Count 2.97 M/uL Hemoglobin 9.9 g/dL Hematocrit 30.3 % Mean Corpuscular Volume 102.0 fL Mean Corpuscular Hemoglobin 33.3 pg Mean Corpuscular Hemoglobin Concent 32.7 g/dl RDW Standard Deviation 60.4 fL RDW Coefficient of Variation 16.3 % Platelet Count 346 K/uL Mean Platelet Volume 8.5 fL Prothrombin Time 18.6 SECONDS Prothromb Time International Ratio 1.8 Sodium Level 141 mmol/L Potassium Level 4.1 mmol/L Chloride Level 109 mmol/L Carbon Dioxide Level 26 mmol/L Anion Gap 5.0 mmol/L Blood Urea Nitrogen 27 mg/dl Creatinine 1.18 mg/dl Est Creatinine Clear Calc Drug Dose 31.4 ml/min Estimated GFR () 48.0 Estimated GFR (Non- 41.4 BUN/Creatinine Ratio 22.9 Random Glucose 85 mg/dl Calcium Level 8.1 mg/dl Magnesium Level 2.0 mg/dl Total Bilirubin 0.3 mg/dl Direct Bilirubin < 0.1 mg/dl Aspartate Amino Transf (AST/SGOT) 26 U/L Alanine Aminotransferase (ALT/SGPT) 46 U/L Alkaline Phosphatase 86 U/L Total Protein 5.8 gm/dl Albumin 2.7 gm/dl Globulin 3.1 gm/dl Albumin/Globulin Ratio 0.9 Date/Time Source Procedure Growth Status 09/10/17 15:46 Blood Blood Culture Pending Received 09/10/17 15:44 Blood Blood Culture Pending Received Assessment & Plan 87 year old female with recent Right Knee Surgery 08/22/17, Factor V leiden deficiency on Coumadin, Hypothyroidism, Arthritis, presenting with fever, cough. ACUTE HYPOXEMIC RESPIRATORY FAILURE, RESOLVED SECONDARY TO ACUTE BRONCHITIS - CXR: no signs of pneumonia CT chest: lower bronchial thickening, no PE influenza A titre -negative - now off NC, saturating well on room air start Doxycycline 100mg BID Nebs q6h Incentive spirometry MARKED LEUKOCYTOSIS : No evidence of infection noted -- blood culture pending urine culture pending -- leukocytosis resolved -- start Doxycycline for possible Acute Bronchitis RT KNEE PAIN /RECENT KNEE SURGERY : no evidence of apparent infection noted in Rt knee Xray ordered for PT/OT pain management ORtho Dr Bernardino mcguire requested , cleared for d/c FACTOR V LEIDEN/HX OF DVT ON COUMADIN INR sub therapeutic 1.5--> 1,8 usually take 5 on / and 7.5 mg other days continue Coumadin foal INR 2-3 RT LOWER ABDOMINAL PAIN : no pathology noted om CT abdomen /pelvis no report of diarrhea monitor daughter mentions the pain has started since Rt knee surgery -- Hip xray ordered HYPOTHYROIDISM : cont statin FULL CODE DVT PROPHYLAXIS : coumadin Added Sub q Heparin till INR therapeutic DISPOSITION : PT/OT consulted prior to discharge daughter updated at bedside Current Inpatient Medications: Current Inpatient Medications Medications (Trade) Dose Ordered Sig/Joann Route Start Time Stop Time Status Last Admin Dose Admin Ioversol (Optiray 320) 100 ml UD PRN IV 09/10/17 12:45 09/14/17 12:44 Al Hydrox/Mg Hydrox/Simethicone (Maalox Max Susp) 15 ml Q4H PRN PO 09/10/17 17:45 10/10/17 17:44 Magnesium Hydroxide (Milk Of Magnesia Susp) 30 ml Q12H PRN PO 09/10/17 17:45 10/10/17 17:44 Ondansetron HCl (Zofran Inj) 4 mg Q6H PRN IV 09/10/17 17:45 10/10/17 17:44 Nitroglycerin (Nitrostat Tab) 0.4 mg UD PRN SL 09/10/17 17:45 10/10/17 17:44 Polyethylene (Miralax Powder Packet) 17 gm DAILY PRN PO 09/10/17 17:45 10/10/17 17:44 Warfarin Sodium (Coumadin Tab) 7.5 mg DAILY@16 PO 09/10/17 18:00 10/10/17 17:59 09/10/17 18:42 7.5 MG Acetaminophen (Tylenol Tab) 650 mg Q6HWA PO 09/11/17 00:00 10/11/17 00:00 09/11/17 06:15 650 MG Ferrous Gluconate (Ferrous Gluconate Tab) 324 mg BIDM PO 09/11/17 07:30 10/11/17 07:29 09/11/17 08:26 324 MG Latanoprost (Xalatan Oph Soln) 1 drops HS OPB 09/10/17 21:00 10/10/17 20:59 Levothyroxine Sodium (Synthroid Tab) 125 mcg HS PO 09/10/17 21:00 10/10/17 20:59 Lidocaine (Lidoderm Patch 5%) 1 patch QAM TD 09/11/17 09:00 10/11/17 08:59 09/11/17 08:27 1 PATCH Multivitamins/ Minerals (Multivitamin W/ Minerals Tab) 1 tab BID PO 09/10/17 21:00 10/10/17 20:59 09/11/17 08:27 1 TAB Multivitamins/ Minerals (Multivitamin W/ Minerals Tab) 1 tab QAM PO 09/11/17 09:00 10/11/17 08:59 Senna/Docusate Sodium (Senokot S Tab) 1 tab HS PO 09/10/17 21:00 10/10/17 20:59 Tramadol HCl (Ultram Tab) 50 mg Q4H PRN PO 09/10/17 19:00 10/10/17 18:59 09/11/17 02:28 50 MG Calcium/Vitamin D (Caltrate Plus Tab) 1 tab DAILY PO 09/11/17 09:00 10/11/17 08:59 09/11/17 08:26 1 TAB Magnesium Oxide (Mag-Ox Tab) 400 mg QPM PO 09/10/17 21:00 10/10/17 20:59 Miscellaneous Information (Order Awaiting Action) 1 ea QS N/A 09/10/17 20:00 10/10/17 19:59 Miscellaneous (Remove Lidoderm Patch) 1 ea DAILY@21 N/A 09/10/17 21:00 10/10/17 20:59 09/10/17 21:07 1 EA Heparin Sodium (Porcine) (Heparin Sq 5000 Unit/0.5ml) 5,000 unit Q8 SQ 09/11/17 14:00 10/11/17 13:59
[2017-09-11] MEDS ORDERED: DOXYCYCLINE HYCLATE 100 MG CAP PO ONE (12:45)
[2017-09-11] MEDS: LEVALBUTEROL 0.63MG/3 ML NEB INH SCH ×3 (13:39→18:50)
[2017-09-11] MEDS: HEPARIN SOD 5000 UNIT/0.5 ML CARP SQ SCH ×2 (14:00→20:50)
--- NOTE | 2017-09-11 14:23 | DIAGNOSTIC IMAGING REPORT ---
R HIP UNILATERAL 2 VIEWS CLINICAL HISTORY: 87 years-old Female presenting with right hip/groin pain. TECHNIQUE: Frontal and frog-leg lateral views of the right hip were obtained. COMPARISON: CT of the abdomen and pelvis from 09/10/2017. FINDINGS: No acute fracture or malalignment. No femoral neck fracture. Mild degenerative changes of the right hip joint better demonstrated on most recent CT with osteophytosis. Joint space is overall preserved. No significant changes evident in the acetabulum. Excreted contrast noted in the urinary bladder. Visualized portion of the bony pelvis intact. 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 No acute osseous injury. Electronically signed by: Horace Taylor M.D. 09/11/2017 2:21 PM Dictated Date/Time: 09/11/2017 2:19 PM
[2017-09-11] MEDS: WARFARIN SOD 7.5 MG TAB PO SCH (16:25)
[2017-09-11] MEDS: DOXYCYCLINE HYCLATE 100 MG CAP PO SCH (20:48)
[2017-09-11] MEDS: LATANOPROST 0.005% OP SOLN 2.5 ML BTL OPB SCH (20:48)
[2017-09-11] MEDS: LEVOTHYROXINE 125 MCG TAB PO SCH (20:48)
[2017-09-11] MEDS: MAGNESIUM OXIDE 400 MG TAB PO SCH (20:48)
[2017-09-11] MEDS: DOCUSATE SODIUM/SENNA 50/8.6MG TAB PO SCH (20:49)
[2017-09-11] MEDS: DORZOLAMIDE HCL 2% OPH SOLN 10 ML BTL OP SCH (20:50)
[2017-09-12] VITALS (10 sets, daily range): BP systolic 121–147; BP diastolic 54–76; PULSE 56–66; TEMP 36.7–37; O2SAT 93–100
[2017-09-12] MEDS: LEVALBUTEROL 0.63MG/3 ML NEB INH SCH ×4 (02:04→18:51)
[2017-09-12] MEDS: HEPARIN SOD 5000 UNIT/0.5 ML CARP SQ SCH ×3 (05:07→20:27)
[2017-09-12] MEDS: DORZOLAMIDE HCL 2% OPH SOLN 10 ML BTL OP SCH ×3 (05:07→20:26)
[2017-09-12] MEDS: ACETAMINOPHEN 325 MG TAB PO SCH ×4 (05:08→23:50)
[2017-09-12 06:16] LABS: HEMATOCRIT 31.3 % (37-47); HEMOGLOBIN 10.3 g/dL (12.0-16.0); MEAN CELL VOLUME 100.6 fL (80-100); MEAN CORPUSCULAR HEMOGLOBIN 33.1 pg (25-34); MEAN CORPUSCULAR HGB CONC 32.9 g/dl (32-36); MEAN PLATELET VOLUME 8.6 fL (7.4-10.4); PLATELET COUNT 343 K/uL (130-400); RED CELL DISTRIBUTION WIDTH CV 16.2 % (11.5-14.5); RED CELL DISTRIBUTION WIDTH SD 58.8 fL (36.4-46.3)
[2017-09-12 06:40] LABS: INR 2.2 (0.9-1.1)
[2017-09-12 06:57] LABS: ALBUMIN 2.8 gm/dl (3.4-5.0); ALT/SGPT 40 U/L (12-78); AST/SGOT 21 U/L (15-37); BLOOD UREA NITROGEN 26 mg/dl (7-18); CALCIUM 8.6 mg/dl (8.5-10.1); CARBON DIOXIDE 24 mmol/L (21-32); CREATININE 1.19 mg/dl (0.60-1.20); GLUCOSE 92 mg/dl (70-99); POTASSIUM 3.8 mmol/L (3.5-5.1); SODIUM 140 mmol/L (136-145)
[2017-09-12 07:00] LABS: ALKALINE PHOSPHATASE 84 U/L (45-117)
[2017-09-12] MEDS: FERROUS GLUCONATE 324 MG TAB PO SCH ×2 (07:30→16:45)
[2017-09-12] MEDS: CALCIUM 600MG + VIT D 400 IU TAB PO SCH (07:34)
[2017-09-12] MEDS: CEROVITE ADV FORMULA TAB PO SCH ×3 (07:34→20:27)
[2017-09-12] MEDS: DOXYCYCLINE HYCLATE 100 MG CAP PO SCH (07:34)
[2017-09-12] MEDS: LIDODERM (LIDOCAINE) PATCH 5% TD SCH (07:34)
--- NOTE | 2017-09-12 09:26 | ORTHOPEDICS PROGRESS NOTE ---
DATE: 09/12/2017 SUBJECTIVE: An 87-year-old white female, a little over 2 weeks out from right knee replacement. She has been readmitted for some bronchitis. Doing better. Her major complaint today is diarrhea. No significant knee pain. OBJECTIVE: VITAL SIGNS: Temperature 37.0. Vital signs stable. PHYSICAL EXAMINATION: Examination of right lower extremity reveals the patient to be sitting up at her bedside chair. She looks comfortable. Examination of the right leg and knee reveals the incision to be healed nicely. Not much in the way of swelling. She can do a straight leg raise with a little bit of a lag. Range of motion 0-90 degrees. She is neurologically intact. Calf is soft and supple. No particular pain with hip motion. LABORATORY DATA: White cell count 6.40. Hemoglobin 10.3. Hematocrit 31.3. Her INR is now 2.2. X-ray of her right hip was reviewed, shows some mild arthritic change. No signs of trauma or fracture. ASSESSMENT: An 87-year-old white female 3 weeks out from right knee replacement complicated by recent bout of bronchitis and readmitted. She seems to be doing better. White count is improved. Clinically, she does not seem to be struggling from a respiratory standpoint. Knee seems to be doing well. There are no signs of infection in her knee. PLAN: 1. DVT prophylaxis including thigh-high TEDs, SCDs and Coumadin. Goal is to keep her INR between 2 and 3. 2. PT/OT. Weight bear as tolerated. Right total knee protocol. Need to continue working on knee range of motion while she is recovering from her bronchitis. 3. Medical management as per the medicine service. 4. Disposition: She is orthopedically stable and acceptable for discharge any time. Any orthopedic questions can be directed to me at [phone]. I will continue to follow her intermittently throughout her stay. If there are any questions or if the patient needs to be seen, let me know.
--- NOTE | 2017-09-12 10:05 | Progress Note ---
Subjective Date of Service: Sep 12, 2017. Subjective Pt evaluation today including: conversation w/ patient, physical exam, lab review, review of studies, review of inpatient medication list Saw/examined the patient in room 203 She's doing okay today c/o diarrhea since last evening denies nausea/vomiting, denies shortness of breath/cough, denies chest pain Problem List Medical Problems: (1) Headache Status: Acute (2) PNA (pneumonia) Status: Acute (3) Right lower quadrant abdominal pain Status: Acute (4) Vertigo Status: Acute (5) Weakness Status: Acute Review of Systems Constitutional: No fever, No chills Respiratory: No cough, No sputum, No shortness of breath Cardiac: No chest pain Abdomen: + diarrhea, No pain, No nausea, No vomiting, No constipation, No GI bleeding Female : No dysuria, No urinary frequency Heme: No abnormal bleeding/bruising Medications Current Inpatient Medications Medications (Trade) Dose Ordered Sig/Joann Route Start Time Stop Time Status Last Admin Dose Admin Ioversol (Optiray 320) 100 ml UD PRN IV 09/10/17 12:45 09/14/17 12:44 Al Hydrox/Mg Hydrox/Simethicone (Maalox Max Susp) 15 ml Q4H PRN PO 09/10/17 17:45 10/10/17 17:44 Magnesium Hydroxide (Milk Of Magnesia Susp) 30 ml Q12H PRN PO 09/10/17 17:45 10/10/17 17:44 Ondansetron HCl (Zofran Inj) 4 mg Q6H PRN IV 09/10/17 17:45 10/10/17 17:44 Nitroglycerin (Nitrostat Tab) 0.4 mg UD PRN SL 09/10/17 17:45 10/10/17 17:44 Polyethylene (Miralax Powder Packet) 17 gm DAILY PRN PO 09/10/17 17:45 10/10/17 17:44 Warfarin Sodium (Coumadin Tab) 7.5 mg DAILY@16 PO 09/10/17 18:00 10/10/17 17:59 09/11/17 16:25 7.5 MG Acetaminophen (Tylenol Tab) 650 mg Q6HWA PO 09/11/17 00:00 10/11/17 00:00 09/11/17 23:15 650 MG Ferrous Gluconate (Ferrous Gluconate Tab) 324 mg BIDM PO 09/11/17 07:30 10/11/17 07:29 09/11/17 16:24 324 MG Latanoprost (Xalatan Oph Soln) 1 drops HS OPB 09/10/17 21:00 10/10/17 20:59 09/11/17 20:48 1 DROPS Levothyroxine Sodium (Synthroid Tab) 125 mcg HS PO 09/10/17 21:00 10/10/17 20:59 09/11/17 20:48 125 MCG Lidocaine (Lidoderm Patch 5%) 1 patch QAM TD 09/11/17 09:00 10/11/17 08:59 09/12/17 07:34 1 PATCH Multivitamins/ Minerals (Multivitamin W/ Minerals Tab) 1 tab BID PO 09/10/17 21:00 10/10/17 20:59 09/12/17 07:34 1 TAB Multivitamins/ Minerals (Multivitamin W/ Minerals Tab) 1 tab QAM PO 09/11/17 09:00 10/11/17 08:59 Tramadol HCl (Ultram Tab) 50 mg Q4H PRN PO 09/10/17 19:00 10/10/17 18:59 09/11/17 02:28 50 MG Calcium/Vitamin D (Caltrate Plus Tab) 1 tab DAILY PO 09/11/17 09:00 10/11/17 08:59 09/12/17 07:34 1 TAB Magnesium Oxide (Mag-Ox Tab) 400 mg QPM PO 09/10/17 21:00 10/10/17 20:59 09/11/17 20:48 400 MG Miscellaneous (Remove Lidoderm Patch) 1 ea DAILY@21 N/A 09/10/17 21:00 10/10/17 20:59 09/11/17 20:51 1 EA Heparin Sodium (Porcine) (Heparin Sq 5000 Unit/0.5ml) 5,000 unit Q8 SQ 09/11/17 14:00 10/11/17 13:59 Levalbuterol (Xopenex 0.63 Mg/ 3 Ml Neb) 0.63 mg Q6R INH 09/11/17 13:00 10/11/17 12:59 09/12/17 02:04 0.63 MG Dorzolamide HCl (Trusopt 2% Oph Soln) 1 drops Q8 OP 09/11/17 22:00 10/11/17 21:59 09/12/17 05:07 1 DROPS Objective Vital Signs Date Time Temp Pulse Resp B/P (MAP) Pulse Ox O2 Delivery O2 Flow Rate FiO2 09/12/17 08:21 37.0 58 15 121/63 (82) 97 Room Air 09/12/17 08:00 Room Air 09/12/17 04:00 36.9 56 16 136/59 (84) 96 Room Air 09/12/17 04:00 Room Air 09/12/17 02:05 58 14 96 Room Air 09/12/17 00:01 Room Air 09/11/17 23:33 36.9 60 20 117/57 (77) 94 Room Air 09/11/17 20:00 Room Air 09/11/17 19:40 36.8 66 18 142/59 (86) 97 Room Air 09/11/17 18:52 64 14 97 Room Air 09/11/17 16:05 36.4 59 22 139/55 (83) 97 Room Air 09/11/17 16:00 95 Room Air 09/11/17 13:37 73 16 97 Room Air 09/11/17 12:16 36.7 57 15 111/56 (74) 96 Room Air 09/11/17 12:00 96 Room Air Physical Exam General Appearance: no apparent distress Respiratory/Chest: lungs clear, normal breath sounds, no respiratory distress, no accessory muscle use Cardiovascular: regular rate, rhythm, no edema, no murmur Extremities: normal inspection, no pedal edema Laboratory Results Last 24 Hours Test 09/12/17 05:39 White Blood Count 6.40 K/uL Red Blood Count 3.11 M/uL Hemoglobin 10.3 g/dL Hematocrit 31.3 % Mean Corpuscular Volume 100.6 fL Mean Corpuscular Hemoglobin 33.1 pg Mean Corpuscular Hemoglobin Concent 32.9 g/dl RDW Standard Deviation 58.8 fL RDW Coefficient of Variation 16.2 % Platelet Count 343 K/uL Mean Platelet Volume 8.6 fL Prothrombin Time 22.4 SECONDS Prothromb Time International Ratio 2.2 Sodium Level 140 mmol/L Potassium Level 3.8 mmol/L Chloride Level 109 mmol/L Carbon Dioxide Level 24 mmol/L Anion Gap 7.0 mmol/L Blood Urea Nitrogen 26 mg/dl Creatinine 1.19 mg/dl Est Creatinine Clear Calc Drug Dose 31.2 ml/min Estimated GFR () 47.5 Estimated GFR (Non- 41.0 BUN/Creatinine Ratio 21.7 Random Glucose 92 mg/dl Calcium Level 8.6 mg/dl Magnesium Level 2.1 mg/dl Total Bilirubin 0.3 mg/dl Direct Bilirubin < 0.1 mg/dl Aspartate Amino Transf (AST/SGOT) 21 U/L Alanine Aminotransferase (ALT/SGPT) 40 U/L Alkaline Phosphatase 84 U/L Total Protein 6.0 gm/dl Albumin 2.8 gm/dl Globulin 3.2 gm/dl Albumin/Globulin Ratio 0.9 Assessment and Plan This is an 87 year old female with a PMH of Factor V Leiden mutation; 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, hypothyroidism, glaucoma, recent R knee surgery on August 22 - presents with flu-like symptoms and mild respiratory failure Mild Acute Hypoxic Respiratory Failure - resolved work-up negative; CTA to r/o PE was negative for an acute PE; flu negative mild atelectatic changes on CXR secondary to recent surgery may be the contributing factor continue supportive care with O2 and PRN nebulizers currently she is weaned off of O2 and denies shortness of breath will stop doxycycline Leukocytosis - resolved unlikely infectious etiology possibly related to dehydration (BUN:creat ratio on admission >20) blood cultures negative x2 thus far UA does not appear dirty, urine culture pending Diarrhea unsure of the cause, possibly antibiotic related? will check C. diff, stop antibiotics stop stool softeners and laxatives for now Recent R Knee surgery doing well: CT, radiographs negative appreciate ortho input - no further management required PT/OT - goal of discharging home Factor V Leiden Mutation hx. of DVT and PE continue Coumadin, INR today is 2.2, goal of 2-3 Hypothyroidism continue Synthroid DVT ppx Coumadin, goal of 2-3 FULL CODE
[2017-09-12] MEDS: WARFARIN SOD 7.5 MG TAB PO SCH (17:23)
[2017-09-12] MEDS: TRAMADOL HCL 50 MG TAB PO PRN (20:26)
[2017-09-12] MEDS: LATANOPROST 0.005% OP SOLN 2.5 ML BTL OPB SCH (20:26)
[2017-09-12] MEDS: LEVOTHYROXINE 125 MCG TAB PO SCH (20:27)
[2017-09-12] MEDS: MAGNESIUM OXIDE 400 MG TAB PO SCH (20:27)
[2017-09-12] MEDS ORDERED: NURSING VERBAL MED ORDER ONE (20:30)
[2017-09-13] VITALS (8 sets, daily range): BP systolic 115–138; BP diastolic 59–69; PULSE 54–64; TEMP 36.1–37; O2SAT 94–99
[2017-09-13] MEDS: LEVALBUTEROL 0.63MG/3 ML NEB INH SCH ×4 (01:32→19:15)
[2017-09-13] MEDS: DORZOLAMIDE HCL 2% OPH SOLN 10 ML BTL OP SCH ×3 (05:34→20:31)
[2017-09-13] MEDS: ACETAMINOPHEN 325 MG TAB PO SCH ×4 (05:35→23:40)
[2017-09-13 05:46] LABS: HEMATOCRIT 30.8 % (37-47); HEMOGLOBIN 10.2 g/dL (12.0-16.0); MEAN CELL VOLUME 99.7 fL (80-100); MEAN CORPUSCULAR HGB CONC 33.1 g/dl (32-36); MEAN PLATELET VOLUME 8.6 fL (7.4-10.4); PLATELET COUNT 340 K/uL (130-400); RED CELL DISTRIBUTION WIDTH CV 15.9 % (11.5-14.5); RED CELL DISTRIBUTION WIDTH SD 58.1 fL (36.4-46.3); WHITE BLOOD COUNT 5.82 K/uL (4.8-10.8)
[2017-09-13 06:00] LABS: INR 1.8 (0.9-1.1)
[2017-09-13] MEDS: CALCIUM 600MG + VIT D 400 IU TAB PO SCH (07:28)
[2017-09-13] MEDS: CEROVITE ADV FORMULA TAB PO SCH ×3 (07:28→20:28)
[2017-09-13] MEDS: LIDODERM (LIDOCAINE) PATCH 5% TD SCH (07:29)
[2017-09-13] MEDS: FERROUS GLUCONATE 324 MG TAB PO SCH ×2 (07:29→17:30)
--- NOTE | 2017-09-13 12:07 | Progress Note ---
Subjective Date of Service: Sep 13, 2017. Subjective Pt evaluation today including: conversation w/ patient, conversation w/ family , physical exam, lab review, review of studies, review of inpatient medication list Saw/examined the patient in room 203 She's doing well ambulated with physical therapy around the hallways No oxygen needs, no further needs identified Problem List Medical Problems: (1) Headache Status: Acute (2) PNA (pneumonia) Status: Acute (3) Right lower quadrant abdominal pain Status: Acute (4) Vertigo Status: Acute (5) Weakness Status: Acute Review of Systems Constitutional: + weakness, + fatigue Respiratory: No cough, No sputum, No shortness of breath Cardiac: No chest pain, No palpitations Medications Current Inpatient Medications Medications (Trade) Dose Ordered Sig/Joann Route Start Time Stop Time Status Last Admin Dose Admin Ioversol (Optiray 320) 100 ml UD PRN IV 09/10/17 12:45 09/14/17 12:44 Al Hydrox/Mg Hydrox/Simethicone (Maalox Max Susp) 15 ml Q4H PRN PO 09/10/17 17:45 10/10/17 17:44 Magnesium Hydroxide (Milk Of Magnesia Susp) 30 ml Q12H PRN PO 09/10/17 17:45 10/10/17 17:44 Ondansetron HCl (Zofran Inj) 4 mg Q6H PRN IV 09/10/17 17:45 10/10/17 17:44 Nitroglycerin (Nitrostat Tab) 0.4 mg UD PRN SL 09/10/17 17:45 10/10/17 17:44 Polyethylene (Miralax Powder Packet) 17 gm DAILY PRN PO 09/10/17 17:45 10/10/17 17:44 Warfarin Sodium (Coumadin Tab) 7.5 mg DAILY@16 PO 09/10/17 18:00 10/10/17 17:59 09/12/17 17:23 7.5 MG Acetaminophen (Tylenol Tab) 650 mg Q6HWA PO 09/11/17 00:00 10/11/17 00:00 09/13/17 05:35 650 MG Ferrous Gluconate (Ferrous Gluconate Tab) 324 mg BIDM PO 09/11/17 07:30 10/11/17 07:29 09/13/17 07:29 324 MG Latanoprost (Xalatan Oph Soln) 1 drops HS OPB 09/10/17 21:00 10/10/17 20:59 09/12/17 20:26 1 DROPS Levothyroxine Sodium (Synthroid Tab) 125 mcg HS PO 09/10/17 21:00 10/10/17 20:59 09/12/17 20:27 125 MCG Lidocaine (Lidoderm Patch 5%) 1 patch QAM TD 09/11/17 09:00 10/11/17 08:59 09/13/17 07:29 1 PATCH Multivitamins/ Minerals (Multivitamin W/ Minerals Tab) 1 tab BID PO 09/10/17 21:00 10/10/17 20:59 09/13/17 07:28 1 TAB Tramadol HCl (Ultram Tab) 50 mg Q4H PRN PO 09/10/17 19:00 10/10/17 18:59 09/12/17 20:26 50 MG Calcium/Vitamin D (Caltrate Plus Tab) 1 tab DAILY PO 09/11/17 09:00 10/11/17 08:59 09/13/17 07:28 1 TAB Magnesium Oxide (Mag-Ox Tab) 400 mg QPM PO 09/10/17 21:00 10/10/17 20:59 09/12/17 20:27 400 MG Miscellaneous (Remove Lidoderm Patch) 1 ea DAILY@21 N/A 09/10/17 21:00 10/10/17 20:59 09/12/17 20:25 1 EA Levalbuterol (Xopenex 0.63 Mg/ 3 Ml Neb) 0.63 mg Q6R INH 09/11/17 13:00 10/11/17 12:59 09/13/17 06:51 0.63 MG Dorzolamide HCl (Trusopt 2% Oph Soln) 1 drops Q8 OP 09/11/17 22:00 10/11/17 21:59 09/12/17 20:26 1 DROPS Objective Vital Signs Date Time Temp Pulse Resp B/P (MAP) Pulse Ox O2 Delivery O2 Flow Rate FiO2 09/13/17 11:41 37.0 64 18 138/59 (85) 99 Room Air 09/13/17 08:00 Room Air 09/13/17 07:42 36.8 57 18 127/60 (82) 94 Room Air 09/13/17 06:51 56 14 97 Room Air 09/13/17 04:00 Room Air 09/13/17 03:35 36.8 54 16 115/61 (79) 94 Room Air 09/13/17 00:01 Room Air 09/12/17 23:30 36.9 65 16 137/66 (89) 93 Room Air 09/12/17 20:00 96 Room Air 09/12/17 19:03 36.8 65 18 147/76 (99) 100 Room Air 09/12/17 18:53 65 14 97 Room Air 09/12/17 16:00 95 Room Air 09/12/17 15:30 37.0 66 17 129/69 (89) 96 Room Air 09/12/17 12:26 36.7 58 16 145/54 (84) 97 Room Air Physical Exam General Appearance: no apparent distress Respiratory/Chest: no respiratory distress, no accessory muscle use Cardiovascular: regular rate, rhythm, no edema, no murmur Neurologic/Psychiatric: no motor/sensory deficits, alert, normal mood/affect Laboratory Results Last 24 Hours Test 09/13/17 05:30 White Blood Count 5.82 K/uL Red Blood Count 3.09 M/uL Hemoglobin 10.2 g/dL Hematocrit 30.8 % Mean Corpuscular Volume 99.7 fL Mean Corpuscular Hemoglobin 33.0 pg Mean Corpuscular Hemoglobin Concent 33.1 g/dl RDW Standard Deviation 58.1 fL RDW Coefficient of Variation 15.9 % Platelet Count 340 K/uL Mean Platelet Volume 8.6 fL Prothrombin Time 19.1 SECONDS Prothromb Time International Ratio 1.8 Assessment and Plan This is an 87 year old female with a PMH of Factor V Leiden mutation; 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, hypothyroidism, glaucoma, recent R knee surgery on August 22 - presents with flu-like symptoms and mild respiratory failure Mild Acute Hypoxic Respiratory Failure - resolved work-up negative; CTA to r/o PE was negative for an acute PE; flu negative mild atelectatic changes on CXR secondary to recent surgery may be the contributing factor continue supportive care with O2 and PRN nebulizers currently she is weaned off of O2 and denies shortness of breath will stop doxycycline Leukocytosis - resolved unlikely infectious etiology possibly related to dehydration (BUN:creat ratio on admission >20) blood cultures negative x2 thus far UA does not appear dirty, urine culture pending Diarrhea 09/13 c. diff is negative 09/12 unsure of the cause, possibly antibiotic related? will check C. diff, stop antibiotics stop stool softeners and laxatives for now Recent R Knee surgery doing well: CT, radiographs negative appreciate ortho input - no further management required PT/OT - goal of discharging home Factor V Leiden Mutation hx. of DVT and PE continue Coumadin, INR today is 2.2, goal of 2-3 Hypothyroidism continue Synthroid DVT ppx Coumadin, goal of 2-3 refusing subq heparin when subtherapeutic FULL CODE stable for discharge Family wants patient to go to rehab/SNF may not qualify with insurance family willing to pay out of pocket case management aware - referrals are in stable for transfer to med/surg today (09/13)
[2017-09-13] MEDS ORDERED: LOPERAMIDE HCL 2 MG CAP PO STA (13:06)
[2017-09-13] MEDS ORDERED: NURSING VERBAL MED ORDER ONE (13:15)
[2017-09-13] MEDS ORDERED: LOPERAMIDE HCL 2 MG CAP PO PRN (13:15)
[2017-09-13] MEDS: WARFARIN SOD 7.5 MG TAB PO SCH (16:12)
[2017-09-13] MEDS: MAGNESIUM OXIDE 400 MG TAB PO SCH (20:29)
[2017-09-13] MEDS: LEVOTHYROXINE 125 MCG TAB PO SCH (20:29)
[2017-09-13] MEDS: LATANOPROST 0.005% OP SOLN 2.5 ML BTL OPB SCH (20:30)
[2017-09-14 00:06] VITALS: BP 128/71; PULSE 58; TEMP 36.8; O2SAT 96
[2017-09-14] MEDS: LEVALBUTEROL 0.63MG/3 ML NEB INH SCH ×2 (02:21→07:16)
[2017-09-14] MEDS: DORZOLAMIDE HCL 2% OPH SOLN 10 ML BTL OP SCH (06:00)
[2017-09-14 06:24] LABS: HEMOGLOBIN 10.6 g/dL (12.0-16.0); MEAN CELL VOLUME 100.3 fL (80-100); MEAN CORPUSCULAR HEMOGLOBIN 33.2 pg (25-34); MEAN CORPUSCULAR HGB CONC 33.1 g/dl (32-36); MEAN PLATELET VOLUME 8.8 fL (7.4-10.4); PLATELET COUNT 350 K/uL (130-400); RED CELL DISTRIBUTION WIDTH CV 15.5 % (11.5-14.5); RED CELL DISTRIBUTION WIDTH SD 56.6 fL (36.4-46.3); WHITE BLOOD COUNT 5.31 K/uL (4.8-10.8)
[2017-09-14] MEDS: ACETAMINOPHEN 325 MG TAB PO SCH ×2 (06:31→12:00)
[2017-09-14 07:04] VITALS: BP 147/69; PULSE 53; TEMP 37; O2SAT 96
[2017-09-14 07:16] VITALS: PULSE 65; O2SAT 97
[2017-09-14] MEDS ORDERED: LEVALBUTEROL 0.63MG/3 ML NEB INH PRN (07:45)
--- NOTE | 2017-09-14 08:54 | PROGRESS NOTE ---
DATE: 09/14/2017 SUBJECTIVE: An 87-year-old white female about 3 weeks out from right knee replacement readmitted with some bronchitis. She is doing better. She states her cough is resolved. Knee pain is controlled. No new complaints. OBJECTIVE: VITAL SIGNS: Temperature is 37.0. Vital signs stable. PHYSICAL EXAMINATION: GENERAL: Reveals a pleasant elderly female. She is sitting up in bed, looks pretty comfortable. EXTREMITIES: Examination of the right leg reveals incision to be healed nicely. Not much swelling. She can do a straight leg raise. She is neurologically intact. LABORATORY DATA: Hemoglobin 10.6. Hematocrit 32.0. INR is 2.0. Electrolytes are stable. ASSESSMENT: An 87-year-old white female about 3 weeks out from right knee replacement complicated by a recent episode of bronchitis. Knee seems to be doing fine. Clinically, she seems to be resolved from the bronchitis. PLAN: 1. DVT prophylaxis including thigh-high TEDs, SCDs, and Coumadin. She is therapeutic at this point and the goal will be to keep her INR between 2 and 3. 2. PT and OT. Weight bear as tolerated. Right total knee protocol. 3. Bronchitis. Medical management. 4. Disposition: She is orthopedically okay for discharge any time obviously. Apparently, she is going to [facility]. I need to see her back 3 weeks from now, which would be about her 6-week appointment, which she already has scheduled. Any orthopedic questions can be directed to me at [phone].
[2017-09-14] MEDS: FERROUS GLUCONATE 324 MG TAB PO SCH (09:16)
[2017-09-14] MEDS: CEROVITE ADV FORMULA TAB PO SCH (09:16)
[2017-09-14] MEDS: LIDODERM (LIDOCAINE) PATCH 5% TD SCH (09:17)
[2017-09-14] MEDS: CALCIUM 600MG + VIT D 400 IU TAB PO SCH (09:18)
--- NOTE | 2017-09-14 11:04 | Progress Note ---
Subjective Date of Service: Sep 14, 2017. Subjective Pt evaluation today including: conversation w/ patient, conversation w/ family , physical exam, lab review, review of studies, review of inpatient medication list Saw/examined the patient in room 417 Patient is doing good, no shortness of breath intermittent cough +weakness, but is ambulating with walker Problem List Medical Problems: (1) Headache Status: Acute (2) PNA (pneumonia) Status: Acute (3) Right lower quadrant abdominal pain Status: Acute (4) Vertigo Status: Acute (5) Weakness Status: Acute Review of Systems Constitutional: + weakness Respiratory: + cough, No sputum, No wheezing, No shortness of breath, No dyspnea on exertion, No dyspnea at rest, No hemoptysis Cardiac: No chest pain Medications Current Inpatient Medications Medications (Trade) Dose Ordered Sig/Joann Route Start Time Stop Time Status Last Admin Dose Admin Ioversol (Optiray 320) 100 ml UD PRN IV 09/10/17 12:45 09/14/17 12:44 Al Hydrox/Mg Hydrox/Simethicone (Maalox Max Susp) 15 ml Q4H PRN PO 09/10/17 17:45 10/10/17 17:44 Magnesium Hydroxide (Milk Of Magnesia Susp) 30 ml Q12H PRN PO 09/10/17 17:45 10/10/17 17:44 Ondansetron HCl (Zofran Inj) 4 mg Q6H PRN IV 09/10/17 17:45 10/10/17 17:44 Nitroglycerin (Nitrostat Tab) 0.4 mg UD PRN SL 09/10/17 17:45 10/10/17 17:44 Polyethylene (Miralax Powder Packet) 17 gm DAILY PRN PO 09/10/17 17:45 10/10/17 17:44 Warfarin Sodium (Coumadin Tab) 7.5 mg DAILY@16 PO 09/10/17 18:00 10/10/17 17:59 09/13/17 16:12 7.5 MG Acetaminophen (Tylenol Tab) 650 mg Q6HWA PO 09/11/17 00:00 10/11/17 00:00 09/14/17 06:31 650 MG Ferrous Gluconate (Ferrous Gluconate Tab) 324 mg BIDM PO 09/11/17 07:30 10/11/17 07:29 09/13/17 17:30 324 MG Latanoprost (Xalatan Oph Soln) 1 drops HS OPB 09/10/17 21:00 10/10/17 20:59 09/13/17 20:30 1 DROPS Levothyroxine Sodium (Synthroid Tab) 125 mcg HS PO 09/10/17 21:00 10/10/17 20:59 09/13/17 20:29 125 MCG Lidocaine (Lidoderm Patch 5%) 1 patch QAM TD 09/11/17 09:00 10/11/17 08:59 09/14/17 09:17 1 PATCH Multivitamins/ Minerals (Multivitamin W/ Minerals Tab) 1 tab BID PO 09/10/17 21:00 10/10/17 20:59 09/14/17 09:16 1 TAB Tramadol HCl (Ultram Tab) 50 mg Q4H PRN PO 09/10/17 19:00 10/10/17 18:59 09/12/17 20:26 50 MG Calcium/Vitamin D (Caltrate Plus Tab) 1 tab DAILY PO 09/11/17 09:00 10/11/17 08:59 09/14/17 09:18 1 TAB Magnesium Oxide (Mag-Ox Tab) 400 mg QPM PO 09/10/17 21:00 10/10/17 20:59 09/13/17 20:29 400 MG Miscellaneous (Remove Lidoderm Patch) 1 ea DAILY@21 N/A 09/10/17 21:00 10/10/17 20:59 09/13/17 20:28 1 EA Dorzolamide HCl (Trusopt 2% Oph Soln) 1 drops Q8 OP 09/11/17 22:00 10/11/17 21:59 09/14/17 06:00 1 DROPS Loperamide HCl (Imodium Cap) 2 mg TID PRN PO 09/13/17 13:15 10/13/17 13:14 09/13/17 17:30 2 MG Levalbuterol (Xopenex 0.63 Mg/ 3 Ml Neb) 0.63 mg Q6R PRN INH 09/14/17 07:45 10/14/17 07:44 Objective Vital Signs Date Time Temp Pulse Resp B/P (MAP) Pulse Ox O2 Delivery O2 Flow Rate FiO2 09/14/17 09:15 Room Air 09/14/17 07:16 65 14 97 Room Air 09/14/17 07:04 37.0 53 18 147/69 (95) 96 Room Air 09/14/17 00:06 36.8 58 20 128/71 (90) 96 Room Air 09/14/17 00:00 Room Air 09/13/17 20:00 Room Air 09/13/17 19:15 58 14 97 Room Air 09/13/17 14:15 63 14 95 Room Air 09/13/17 14:00 36.1 62 20 130/69 (89) 99 Room Air 09/13/17 14:00 Room Air 09/13/17 13:16 37.0 64 18 99 09/13/17 12:00 Room Air 09/13/17 11:41 37.0 64 18 138/59 (85) 99 Room Air Physical Exam General Appearance: no apparent distress Respiratory/Chest: lungs clear, normal breath sounds, no respiratory distress, no accessory muscle use Cardiovascular: regular rate, rhythm, no edema, no murmur Abdomen: normal bowel sounds, non tender, soft Extremities: normal inspection, no pedal edema Neurologic/Psychiatric: no motor/sensory deficits, alert, normal mood/affect Laboratory Results Last 24 Hours Test 09/14/17 06:08 White Blood Count 5.31 K/uL Red Blood Count 3.19 M/uL Hemoglobin 10.6 g/dL Hematocrit 32.0 % Mean Corpuscular Volume 100.3 fL Mean Corpuscular Hemoglobin 33.2 pg Mean Corpuscular Hemoglobin Concent 33.1 g/dl RDW Standard Deviation 56.6 fL RDW Coefficient of Variation 15.5 % Platelet Count 350 K/uL Mean Platelet Volume 8.8 fL Prothrombin Time 21.1 SECONDS Prothromb Time International Ratio 2.0 Assessment and Plan This is an 87 year old female with a PMH of Factor V Leiden mutation; 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, hypothyroidism, glaucoma, recent R knee surgery on August 22 - presents with flu-like symptoms and mild respiratory failure Mild Acute Hypoxic Respiratory Failure - resolved 09/14 doing better, clinically no bacterial infection noted; off of antibiotics 09/13 work-up negative; CTA to r/o PE was negative for an acute PE; flu negative mild atelectatic changes on CXR secondary to recent surgery may be the contributing factor continue supportive care with O2 and PRN nebulizers currently she is weaned off of O2 and denies shortness of breath will stop doxycycline Leukocytosis - resolved unlikely infectious etiology possibly related to dehydration (BUN:creat ratio on admission >20) blood cultures negative x2 thus far UA does not appear dirty, urine culture pending Diarrhea 09/13 c. diff is negative 09/12 unsure of the cause, possibly antibiotic related? will check C. diff, stop antibiotics stop stool softeners and laxatives for now Recent R Knee surgery doing well: CT, radiographs negative appreciate ortho input - no further management required PT/OT - goal of discharging home Factor V Leiden Mutation hx. of DVT and PE continue Coumadin, INR today is 2.2, goal of 2-3 Hypothyroidism continue Synthroid DVT ppx Coumadin, goal of 2-3 refusing subq heparin when subtherapeutic FULL CODE stable for discharge Family wants patient to go to rehab/SNF may not qualify with insurance family willing to pay out of pocket case management aware - referrals are in - plan for discharge to [facility] on 09/14
[2017-09-14 11:05] VITALS: BP 147/69; PULSE 65; TEMP 37; O2SAT 97
[2017-09-14] MEDS ORDERED: IMD2X PO (11:07)
--- NOTE | 2017-09-14 11:14 | Discharge Instructions ---
Discharge Instructions Date of Service Sep 14, 2017. Admission Reason for Admission: Pneumonia Discharge Discharge Diagnosis / Problem: Likely Bronchitis, low oxygen levels, weakness Discharge Goals Goal(s): Decrease discomfort, Improve function, Diagnostic testing, Therapeutic intervention Activity Recommendations Activity Level: Up Ad Velma, Ambulates in room Therapies: Physical Therapy, Occupational Therapy Lifting Limitations: none Exercise/Sports Limitations: none Shower/Bathe: no limitations . Additional Information Patient informed of condition: Yes Advance Directives: No DNR: No Level of Care: Acute Rehab Communicable Disease: No Prognosis: Improving Park Catheter: No Instructions / Follow-Up Instructions / Follow-Up Patient is being discharged to [facility] for rehab purposes - will need continued physical and occupational therapy Should have INR rechecked on September 18 or September 19 to assure goal INR of 2-3 is met Follow-up with Dr. Lebron, orthopedic surgery, in 3 weeks Follow-up with primary care physician one week after stay at [facility] Current Hospital Diet Patient's current hospital diet: AHA Diet (Heart Healthy) Discharge Diet Recommended Diet: AHA Diet (Heart Healthy) Pending Studies Studies pending at discharge: no Medical Emergencies . Who to Call and When: Medical Emergencies: If at any time you feel your situation is an emergency, please call 911 immediately. . Non-Emergent Contact Non-Emergency issues call your: Primary Care Provider, Surgeon . . "Provider Documentation" section prepared by Lizbeth Lobato. . Core Measure Problem Core Measures: None
--- NOTE | 2017-09-14 11:22 | Discharge Summary ---
Discharge Summary Date of Service Sep 14, 2017. 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 Calcium Carbonate-Vitamin D (Calcium + D) 1 Tab Tab 1 TAB PO DAILY Dorzolamide Hcl (Trusopt) 2 % Elisabeth 1 DROP OPB Q8 Ferrous Gluconate (Ferrous Gluconate) 324 Mg Tab 324 MG PO BIDM, TAB Latanoprost (Xalatan 0.005% Oph Elisabeth) 0.005 % Elisabeth 1 DROP OPB HS, ML Levothyroxine Sodium (Synthroid) 125 Mcg Tab 125 MCG PO HS Lidocaine (Lidocaine) 1 Patch Tdsy 1 PATCH TOP ONAMOFFPM Magnesium Oxide (Mg Supplement (Magnesium) 400 Mg Cap 400 MG PO QPM TAKE THIS MEDICATION WITH EVENING MEAL Multiple Vitamins W/ Minerals (Ocuvite) 1 Tab Tab 1 TAB PO BID Multivitamins/Minerals (Mvi With Minerals) Tab 1 TAB PO QAM, TAB Ondasetron Odt (Zofran Odt) 4 Mg Tab 4 MG SL Q4H PRN for Nausea or Vomiting, TAB Tramadol (Ultram) 50 Mg Tab 50 MG PO Q4H PRN for Pain Warfarin Sod (Jantoven) 7.5 Mg Tab 7.5 MG PO 6XWK TAKE 1 TABLET BY MOUTH SUN, MON, WED, THURS, FRI, SAT Discontinued Medications: Docusate Sodium (Docusate Sodium) 100 Mg Cap 100 MG PO BID, CAP Sennosides-Docusate Sodium (Docusate Sodium/Senna) 1 Tab Tab 1 TAB PO HS Admission Information HPI (per Admitting provider): this is a 87 yo F with hx of Factor V Leiden , 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 just above the groin in ER pt was afebrile, vitals were stable Cxray showed no infiltrate , influenza titre negative CT abdomen /pelvis -no acute pathology rt knee Xray shows -post surgical change , no joint effusion noted on arrival to ER , pt was hypoxic 88% in RA improved to 94% with supplemental 02 2 L via Nasal canula Vitals on admission : temp 37.4/HR 77 /TT 20 /BP 117/60 Physical Exam (per Admitting): General Appearance: + mild distress (anxious, ill appearing ) Head: normocephalic, atraumatic Eyes: normal inspection, PERRL, EOMI, sclerae normal ENT: + pertinent finding (dry oral mucosa ) Neck: no adenopathy, thyroid normal, no JVD, no carotid bruits, trachea midline Respiratory/Chest: no accessory muscle use, + accessory muscle use Cardiovascular: regular rate, rhythm, no edema, no JVD, normal peripheral pulses Abdomen/GI: soft, + tenderness (on rt lower quardrant , just above the rt hip joint area , no overlying skin rash or erythema noted ,) Extremities/Musculoskelatal: normal capillary refill, no pedal edema, + pertinent finding (rt knee -steri strips are present for TKA surgery ; + warmth , tenderness noted , no flactuation, no drainage , surgical wound healing well) Neurologic/Psych: alert, oriented x 3, + depressed affect Hospital Course This is an 87 year old female with a PMH of Factor V Leiden mutation; 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, hypothyroidism, glaucoma, recent R knee surgery on August 22 - presents with flu-like symptoms and mild respiratory failure Mild Acute Hypoxic Respiratory Failure - resolved 09/14 doing better, clinically no bacterial infection noted; off of antibiotics 09/13 work-up negative; CTA to r/o PE was negative for an acute PE; flu negative mild atelectatic changes on CXR secondary to recent surgery may be the contributing factor continue supportive care with O2 and PRN nebulizers currently she is weaned off of O2 and denies shortness of breath will stop doxycycline Leukocytosis - resolved unlikely infectious etiology possibly related to dehydration (BUN:creat ratio on admission >20) blood cultures negative x2 thus far UA does not appear dirty, urine culture pending Diarrhea 09/13 c. diff is negative 09/12 unsure of the cause, possibly antibiotic related? will check C. diff, stop antibiotics stop stool softeners and laxatives for now Recent R Knee surgery doing well: CT, radiographs negative appreciate ortho input - no further management required PT/OT - goal of discharging home Factor V Leiden Mutation hx. of DVT and PE continue Coumadin, INR today is 2.2, goal of 2-3 Hypothyroidism continue Synthroid DVT ppx Coumadin, goal of 2-3 refusing subq heparin when subtherapeutic FULL CODE stable for discharge Family wants patient to go to rehab/SNF may not qualify with insurance family willing to pay out of pocket case management aware - referrals are in - plan for discharge to [facility] on 09/14 Total time spent on discharge = 35 minutes This includes examination of the patient, discharge planning, medication reconciliation, and communication with other providers. Discharge Instructions Patient is being discharged to [facility] for rehab purposes - will need continued physical and occupational therapy Should have INR rechecked on September 18 or September 19 to assure goal INR of 2-3 is met Follow-up with Dr. Lebron, orthopedic surgery, in 3 weeks Follow-up with primary care physician one week after stay at [facility]
== END 2017-09-14 12:50 | DRG 202 ==
LOC: EDBD 10:56 → EDSEX 10:56 → C.EDB 10:57 → C.2E 14:33 → ENRESERV 14:54 → C.4E 09-13 13:46
PROVIDERS: ADMIT Hospitalist; ATTEND Family Medicine
DX: J20.8 Acute bronchitis due to other specified organisms (principal); J96.01 Acute respiratory failure with hypoxia; J98.11 Atelectasis; D68.51 Activated protein C resistance; E86.0 Dehydration; R19.7 Diarrhea, unspecified; R11.2 Nausea with vomiting, unspecified; D72.829 Elevated white blood cell count, unspecified; R10.31 Right lower quadrant pain; M25.561 Pain in right knee; E03.9 Hypothyroidism, unspecified; M19.90 Unspecified osteoarthritis, unspecified site; H40.9 Unspecified glaucoma; Z47.1 Aftercare following joint replacement surgery; Z96.651 Presence of right artificial knee joint; Z86.718 Personal history of other venous thrombosis and embolism; Z86.73 Personal history of transient ischemic attack (TIA), and cerebral infarction without residual deficits; Z86.711 Personal history of pulmonary embolism; Z79.01 Long term (current) use of anticoagulants; Z79.899 Other long term (current) drug therapy; Z88.5 Allergy status to narcotic agent